=== PATIENT | female | born 1940 | race African-American/Black ===

== ENCOUNTER 2018-01-19 02:47 | Observation (INO) | payer MEDICARE ==
[2018-01-19 03:20] LABS: %Neutrophils 91.7 % (42.0-75.0); Hemoglobin 11.6 g/dL (12.0-16.0); Mean Corpuscular Hemoglobin 30.3 pg (27.0-31.0); Mean Corpuscular Volume 86.8 fl (81.0-99.0); Mean Platelet Volume 7.6 fL (7.4-10.4); Platelet Count 197 thou/uL (130-400); RBC Distribution Width 13.5 % (11.5-14.5); Red Blood Cell (RBC) Count 3.81 mill/uL (4.20-5.40); White Blood Cell (WBC) Count 16.8 thou/uL (4.8-10.8)
[2018-01-19 03:21] LABS: #Monocytes 0.3 thou/uL (0.11-0.59); #Neutrophils 15.4 thou/uL (1.40-6.50); %Basophils 0.1 % (0.0-1.0); %Eosinophils 0.3 % (0.0-10.0); %Lymphocytes 6.1 % (21.0-51.0); %Monocytes 1.8 % (0.0-10.0)
[2018-01-19 03:24] LABS: Bilirubin Negative (Negative); Blood, Urine Trace (Negative); Clarity CLEAR (Clear); Glucose, Urine (Dipstick) Negative (Negative); Leukocyte Trace (Negative); Nitrite Negative (Negative); Protein, Urine (Dipstick) 100 mg/dL (Neg-Trace); Specific Gravity, Urine 1.012 (1.002-1.036); Urobilinogen 0.2 mg/dL (0.2-1.0); pH, Urine 5.5 (5.0-9.0)
[2018-01-19 03:26] LABS: Bacteria/HPF 4+ HPF (None Seen); Hyaline Casts/LPF 0-3 HYALINE CAST LPF (0-3 Hyaline); Squamous Epithelial 0-3 HPF (0-3); WBC/HPF 0-3 HPF (0-3)
[2018-01-19 03:30] LABS: Prothrombin Time 13.3 SEC (12.0-14.7)
[2018-01-19 03:43] LABS: ALT (SGPT) 16 U/L (8-55); AST (SGOT) 18 U/L (5-34); Albumin 4.3 g/dL (3.4-4.8); Alkaline Phosphatase 129 U/L (40-150); Anion Gap 13 mmol/L (10-20); BUN (Urea Nitrogen) 35 mg/dL (9.8-20.1); Bilirubin, Total 0.5 mg/dL (0.2-1.2); CK (CPK) 69 U/L (29-168); Calc. Creatinine Clearance 0 mL/min (70-130); Carbon Dioxide 27 mmol/L (23-31); Chloride 91 mmol/L (98-107); Estimated GFR-MDRD 33; Globulin 4.2 g/dL (2.4-3.5); Glucose 189 mg/dL (83-110); Lipase 14 U/L (8-78); Potassium 4.3 mmol/L (3.5-5.1); Protein, Total 8.5 g/dL (6.0-8.3); Sodium 127 mmol/L (136-145)
[2018-01-19 03:46] LABS: CKMB 1.7 ng/mL (0-6.6); Troponin I Less than 0.010 ng/mL (< 0.028)
[2018-01-19] MEDS ORDERED: Nitroglycerin 0.4 MG TAB (25 Tab Bottle) ONE (03:54)
[2018-01-19 06:29] LABS: Troponin I 0.018 ng/mL (< 0.028)
[2018-01-19] MEDS ORDERED: Nitroglycerin 2% Ointment 1 INCH/1 GM Packet ONE (07:09)
--- NOTE | 2018-01-19 08:27 | RAD ---
PORTABLE UPRIGHT FRONTAL CHEST RADIOGRAPH: Date: 01-19-18 Comparison: 01-27-17 History: Chest pain. FINDINGS: There is stable prominence of the cardiac silhouette. There is pulmonary vascular congestion and midl ine sternotomy wires present. Post-surgical clips overlie the neck on the left. There is no pneumotho rax. There is mild hazy interstitial opacity in the perihilar regions in both lung bases. IMPRESSION: Mild interstitial prominence may signify mild interstitial edema in the proper clinical setting. No l obar consolidation or alveolar edema. POS: [facility]
[2018-01-19 09:48] LABS: Troponin I 0.019 ng/mL (< 0.028)
[2018-01-19 11:00] VITALS: BMI 32.3
[2018-01-19] MEDS ORDERED: Ondansetron HCl/PF 4 MG/2 ML Vial IVP PRN (11:05)
[2018-01-19] MEDS ORDERED: Ondansetron ODT 4 MG TAB PO PRN (11:05)
[2018-01-19] MEDS ORDERED: Acetaminophen 325 MG TAB PO PRN (11:05)
[2018-01-19] MEDS ORDERED: Furosemide 20 MG TAB PO SCH (12:30)
[2018-01-19] MEDS ORDERED: cloNIDine 0.2 MG TAB PO SCH (12:30)
[2018-01-19] MEDS ORDERED: Amlodipine 10 MG TAB PO SCH (12:30)
[2018-01-19] MEDS ORDERED: Carvedilol 25 MG TAB PO SCH (14:15)
[2018-01-19] MEDS: Carvedilol 25 MG TAB PO SCH (20:26)
[2018-01-19] MEDS: cloNIDine 0.2 MG TAB PO SCH (20:26)
[2018-01-20] MEDS: cloNIDine 0.2 MG TAB PO SCH (08:06)
--- NOTE | 2018-01-20 08:17 | HP ---
DATE OF ADMISSION: 01/19/2018 REASON FOR ADMISSION AND CHIEF COMPLAINT: Chest pain. HISTORY OF PRESENT ILLNESS: Ms. Gomez is a 77-year-old -[place] female with past medical hi story of coronary artery disease, status post CABG; came with chest pain that started last night. Th e pain in the retrosternal area, pressure-like, radiates to left shoulder and arm, also has been feel ing dizzy and weak since yesterday. The chest pain is associated with shortness of breath as well, b ut no nausea, vomiting, no diaphoresis. The pain lasted more than 30 minutes. The patient decided t o come to the hospital because of this chest pain. In the ER, the patient was evaluated, found to dolan ve normal cardiac enzymes and EKG. The patient received nitroglycerin in the ER sublingual x3. The patient is admitted to rule out myocardial infarction. Currently, the patient is chest pain free. PAST MEDICAL HISTORY: 1. Coronary artery disease, status post coronary artery bypass graft. 2. Hypertension. 3. Hypertensive heart disease. 4. History of fluid overload secondary to renal failure, chronic kidney disease, stage 4 5. Hyperlipidemia. 6. Degenerative joint disease. 7. History of hyponatremia. PAST SURGICAL HISTORY: 1. Status post CABG. 2. Status post cholecystectomy. 3. Status post hysterectomy. CURRENT MEDICATIONS: The patient is on Norvasc 10 mg daily, Coreg 25 b.i.d., clonidine 0.2 b.i.d., L asix 20 mg daily, Imdur 60 mg daily, Crestor 10 mg daily, aspirin 325 mg daily. It is not clear whet her she is still on Zoloft ALLERGIES: IBUPROFEN. FAMILY HISTORY: Positive for hypertension. SOCIAL HISTORY: The patient lives with her . No history of smoking, no history of alcohol in take. REVIEW OF SYSTEMS: Cardiovascular: Has chest pain and shortness of breath. Respiratory: No fever. Has cough, productive with whitish sputum. Gastrointestinal: No nausea or vomiting. Central nerv ous system: No headache. Feels dizzy. PHYSICAL EXAMINATION: VITAL SIGNS: Temperature 98, pulse 83, respirations 28, blood pressure 190/60. HEENT: Head is normocephalic and atraumatic. Pupils are equal and reactive to light. Nasopharynx i s pale and dry. Hard and soft palate, no lesions seen. SKIN: Skin turgor decreased. NECK: Supple. No JVD. LUNGS: Breath sounds diminished bilaterally. Percussion not dull bilaterally. No rales, no rhonchi . CARDIAC: S1, S2, regular. ABDOMEN: Soft, no distention. Normal bowel sounds present. RECTAL: Deferred. NEUROLOGIC: No focal deficits. LABORATORY DATA: CBC shows WBC 16.8, hemoglobin 11.6, hematocrit 33, platelets 197. Metabolic panel : Sodium 127, potassium 4.3, chloride 91, CO2 of 27, BUN is 35, creatinine 1.8, glucose 189. CK-MB 1.7, troponin I less than 0.010. Urinalysis negative. Prothrombin time 13, INR 1. Chest x-ray neg ative. EKG shows normal sinus rhythm, no acute ST-T wave changes seen. ASSESSMENT: 1. Chest pain, rule out myocardial infarction. 2. Coronary artery disease, status post coronary artery bypass graft. 3. Hypertension, uncontrolled. 4. Hyperlipidemia. 5. Degenerative joint disease. 6. Chronic kidney disease, stage 4. PLAN: 1. Vital signs q.4 hours. 2. Activity: As tolerated. 3. Allergies: IBUPROFEN. 4. Hep-Lock. 5. Cardiac diet. 6. Cardiac enzymes q.6 hours x2. 7. Stress test Cardiolite. 8. Continue her home medications. 9. We will add losartan for control of blood pressure.
[2018-01-20] MEDS ORDERED: Amlodipine 10 MG TAB PO SCH (09:00)
[2018-01-20] MEDS ORDERED: Furosemide 20 MG TAB PO SCH (09:00)
[2018-01-20] MEDS: Carvedilol 25 MG TAB PO SCH (12:30)
[2018-01-20] MEDS ORDERED: ADENOSINE 60 MG/20 ML VIAL ONE (13:29)
[2018-01-20] MEDS ORDERED: cloNIDine 0.2 MG TAB PO SCH ×2 (14:15→15:00)
--- NOTE | 2018-01-20 14:31 | NM ---
MYOCARDIAL PERFUSION EVALUATION: DATE: 01/19/18 INDICATION: Chest pain. RADIOPHARMACEUTICAL: 29.7 mCi technetium-99m sestamibi IV with stress and 30.5 mCi technetium-99m sestamibi IV with rest. FINDINGS: There is a mild size region of mild reduced activity involving the mid to apical lateral wall on both rest and stress images, likely related to overlying soft tissue artifact. No definite reversible myocardial perfusion defect is evident. Normal wall motion and thickening. Estimated LVEF is 55%. IMPRESSION: 1. Probably normal myocardial perfusion evaluation. 2. No definite scintigraphic evidence of reversible myocardial ischemia. 3. Predominantly fixed mild defect involving the lateral wall of the left ventricle on both the rest and stress images likely related to overlying soft tissue attenuation. POS: [facility]
[2018-01-20 14:59] LABS: #Eosinphils 0.1 thou/uL (0.0-0.7); #Lymphocytes 2.2 thou/uL (1.20-3.40); #Monocytes 0.9 thou/uL (0.11-0.59); #Neutrophils 5.3 thou/uL (1.40-6.50); %Basophils 0.2 % (0.0-1.0); %Eosinophils 1.2 % (0.0-10.0); %Lymphocytes 26.3 % (21.0-51.0); %Monocytes 10.4 % (0.0-10.0); Hemoglobin 11.8 g/dL (12.0-16.0); Mean Corpuscular HGB CONC 33.7 g/dL (32.0-36.0); Mean Corpuscular Hemoglobin 29.8 pg (27.0-31.0); Mean Corpuscular Volume 88.5 fl (81.0-99.0); Mean Platelet Volume 7.5 fL (7.4-10.4); Platelet Count 178 thou/uL (130-400); RBC Distribution Width 13.9 % (11.5-14.5); Red Blood Cell (RBC) Count 3.97 mill/uL (4.20-5.40); White Blood Cell (WBC) Count 8.5 thou/uL (4.8-10.8)
[2018-01-20 15:17] LABS: Anion Gap 12 mmol/L (10-20); BUN (Urea Nitrogen) 39 mg/dL (9.8-20.1); Calc. Creatinine Clearance 36 mL/min (70-130); Calcium 9.4 mg/dL (7.8-10.44); Carbon Dioxide 28 mmol/L (23-31); Chloride 98 mmol/L (98-107); Estimated GFR-MDRD 40; Glucose 135 mg/dL (83-110); Sodium 134 mmol/L (136-145)
[2018-01-20 15:43] VITALS: BP 132/61; TEMP 98.8
--- NOTE | 2018-01-21 12:49 | DIS ---
DATE OF ADMISSION: 01/19/2018 DATE OF DISCHARGE: 01/20/2018 ADMITTING DIAGNOSES: 1. Chest pain, rule out myocardial infarction. 2. Coronary artery disease, status post coronary artery bypass graft. 3. Hypertension, uncontrolled. 4. Hyperlipidemia. 5. Degenerative joint disease. 6. Chronic kidney disease, stage 4. FINAL DIAGNOSES: 1. Chest pain, no evidence of acute myocardial, negative Cardiolite stress test. 2. Hypertension, uncontrolled, improved. 3. Hyperlipidemia. 4. Degenerative joint disease. 5. Chronic kidney disease, stage 4. BRIEF SUMMARY OF HOSPITAL COURSE: Ms. Gomez is a 77-year-old female admitted with chest pain. In v iew of risk factors, the patient was admitted to rule out [place]. Serial cardiac enzymes were done and t hey were within normal limits. The patient underwent Cardiolite stress test and reported negative fo r ischemia. The patient did not have anymore chest pain, but her blood pressure was markedly elevate d. In view of that, her medication, clonidine, dose was increased to 3 times a day and losartan was added to her medication after which her blood pressure was better controlled. So, in view of improve ment, the patient was discharged. At the time of discharge, she was stable. Her vital signs stable. Lungs clear. Heart sounds regular. Her abdomen was soft and nontender. Bowel sounds present. DISCHARGE MEDICATIONS: Include Crestor 10 mg daily, amlodipine 10 mg daily, Zoloft 50 mg daily, sherin min D daily, Coreg 25 b.i.d., Xanax 0.25 once daily at night p.r.n., Imdur 60 mg daily, clonidine 0.2 t.i.d., Lasix 20 mg daily, losartan with hydrochlorothiazide 50/12.5 daily. FOLLOWUP: The patient will come for followup in 2 weeks.
--- NOTE | 2018-01-31 16:03 | EKG ---
Test Reason : Blood Pressure : / mmHG Vent. Rate : 094 BPM Atrial Rate : 094 BPM P-R Int : 156 ms QRS Dur : 080 ms QT Int : 350 ms P-R-T Axes : 069 -14 098 degrees QTc Int : 437 ms Normal sinus rhythm Possible Left atrial enlargement Left ventricular hypertrophy with repolarization abnormality No STEMI Abnormal ECG Confirmed by NICOLE Brock, AALIYAH ([id number]), society editor JEANNIE SINGH ([id number] on 01/31/2018 4:03:10 PM Referred By: Confirmed By:AALIYAH RIVERA M.D.
--- NOTE | 2018-02-01 13:36 | STRESS ---
Acquisition Time: 2018-01-20 10:21:44 Total Exercise Time: 00:04:00 Test Indications: CHEST PAIN Medications: Protocol: ADENOSINE Max HR: 083 BPM 57% of Pred: 144 BPM Max BP: 198/064 mmHG Max Work Load: 1.0 METS RESTING ECG: NORMAL SINUS RHYTHM AT 72 BPM WITH NON-SPECIFIC ST SEGMENT AND T-WAVE CHANGES; EARLY R-WAVE TRANSITION SYMPTOMS: SHORTNESS OF BREATH NORMAL BP RESPONSE ECTOPY: NONE ECG STRESS: NO SIGNIFICANT CHANGES INTERPRETATION: INDETERMINATE ECG/AWAIT NUCLEAR IMAGES FOR DEFINITIVE DIAGNOSIS Confirmed by FELIX ESTRADA ([id number]) on 02/01/2018 1:35:45 PM Referred By: MD Susan MENG Confirmed By:FELIX ESTRADA
== END 2018-01-20 17:11 | disposition home or self-care (01) ==
LOC: ERS 02:47 → ERHOLD 04:40 → 2SW 10:47
PROVIDERS: ADMIT Internal Medicine; ATTEND Internal Medicine
DX: R07.2 Precordial pain (principal); I25.10 Atherosclerotic heart disease of native coronary artery without angina pectoris; I12.9 Hypertensive chronic kidney disease with stage 1 through stage 4 chronic kidney disease, or unspecified chronic kidney disease; N18.4 Chronic kidney disease, stage 4 (severe); E78.5 Hyperlipidemia, unspecified; M19.90 Unspecified osteoarthritis, unspecified site; Z79.82 Long term (current) use of aspirin; Z79.899 Other long term (current) drug therapy; Z88.6 Allergy status to analgesic agent; Z95.1 Presence of aortocoronary bypass graft; Z90.49 Acquired absence of other specified parts of digestive tract; Z90.710 Acquired absence of both cervix and uterus
CPT/HCPCS: 71045; 78452; 80048; 80053; 82550; 82553; 83690; 83880; 84484 ×2; 85025 ×2; 85610; 93005; 93017; 96360; 99285; A9500; G0378; 36415; 81003; 81015; A4216; J0153

== ENCOUNTER 2018-08-31 10:24 | Outpatient (CLI) | payer MEDICARE ==
--- NOTE | 2018-08-31 12:43 | RAD ---
FOUR VIEWS CERVICAL SPINE SERIES: Indication: Fall with neck pain. Injury. FINDINGS: The odontoid process is intact. The lateral masses of C1 are appropriately aligned. There is moderate multilevel degenerative changes of the cervical spine. Cervical spine straightening may be degenerat citlaly in etiology. There is multilevel facet osteoarthrosis. Several metallic clips overlie the soft ti ssues of the neck bilaterally. IMPRESSION: Moderate degenerative change within the cervical spine without evidence of acute fracture. POS: [facility]
== END 2018-08-31 10:25 | disposition home or self-care (01) ==
LOC: RAD 10:24
PROVIDERS: ATTEND Internal Medicine
DX: M54.2 Cervicalgia (principal); M47.812 Spondylosis without myelopathy or radiculopathy, cervical region
CPT/HCPCS: 72040

== ENCOUNTER 2018-10-20 16:51 | Inpatient (IN) | payer MEDICARE ==
[2018-10-20 17:22] LABS: #Lymphocytes 0.8 thou/uL (1.20-3.40); #Monocytes 0.6 thou/uL (0.11-0.59); #Neutrophils 3.8 thou/uL (1.40-6.50); %Basophils 0.5 % (0.0-1.0); %Eosinophils 0.8 % (0.0-10.0); %Lymphocytes 15.6 % (21.0-51.0); %Monocytes 11.5 % (0.0-10.0); %Neutrophils 71.7 % (42.0-75.0); Mean Corpuscular HGB CONC 36.1 g/dL (32.0-36.0); Mean Corpuscular Hemoglobin 31.3 pg (27.0-31.0); Mean Corpuscular Volume 86.6 fL (78.0-98.0); Mean Platelet Volume 6.5 fL (7.4-10.4); Platelet Count 228 thou/uL (130-400); RBC Distribution Width 11.6 % (11.5-14.5); Red Blood Cell (RBC) Count 2.89 mill/uL (4.20-5.40); White Blood Cell (WBC) Count 5.3 thou/uL (4.8-10.8)
[2018-10-20 17:44] LABS: ALT (SGPT) 41 U/L (8-55); AST (SGOT) 37 U/L (5-34); Albumin 4.2 g/dL (3.4-4.8); Alkaline Phosphatase 98 U/L (40-150); Anion Gap 18 mmol/L (10-20); BUN (Urea Nitrogen) 61 mg/dL (9.8-20.1); Bilirubin, Total 1.2 mg/dL (0.2-1.2); Calc. Creatinine Clearance 0 mL/min (70-130); Calcium 10.1 mg/dL (7.8-10.44); Carbon Dioxide 28 mmol/L (23-31); Chloride 75 mmol/L (98-107); Estimated GFR-MDRD 19; Globulin 3.8 g/dL (2.4-3.5); Glucose 108 mg/dL (83-110); Potassium 4.1 mmol/L (3.5-5.1)
[2018-10-20 17:49] LABS: Sodium 117 mmol/L (136-145)
--- NOTE | 2018-10-20 19:33 | RAD ---
SINGLE VIEW OF THE CHEST: 10/20/18 COMPARISON: 01/19/18 HISTORY: Bilateral lower extremity weakness for one month. FINDINGS: Single view of the chest shows a normal sized cardiomediastinal silhouette with atherosclerotic calci fications in the aorta. The patient is status post sternotomy. There is no evidence of consolidation, mass, or pleural effusion. IMPRESSION: No evidence of acute cardiopulmonary disease. POS: [facility]
[2018-10-21 08:38] LABS: Bilirubin Negative (Negative); Blood, Urine Small (Negative); Clarity CLOUDY (Clear); Glucose, Urine (Dipstick) Negative (Negative); Leukocyte Moderate (Negative); Nitrite Negative (Negative); Protein, Urine (Dipstick) Trace mg/dL (Neg-Trace); Specific Gravity, Urine 1.008 (1.002-1.036); pH, Urine 6.5 (5.0-9.0)
[2018-10-21 08:44] LABS: Hyaline Casts/LPF 0-3 HYALINE CAST LPF (0-3 Hyaline); RBC/HPF 0-3 HPF (0-3)
[2018-10-21 09:03] LABS: Bacteria/HPF 4+ HPF (None Seen)
[2018-10-21] MEDS: Sodium Chloride 0.9% 1,000 ML IV SCH ×2 (10:04→19:37)
--- NOTE | 2018-10-21 10:15 | CON ---
DATE OF CONSULTATION: RENAL MEDICINE HISTORY OF PRESENT ILLNESS: Ms. Gomez is 78-year-old black female, was admitted initially for evaluation of a bilateral leg weakness-chronic in nature. She was found to be having hyponatremia and acute kidney injury on top of her chronic renal failure. We are now being consulted over for this problems-evaluation of the hyponatremia, acute kidney injury. REVIEW OF SYSTEMS: Decreased appetite, decreased energy level, decreased leg strength. No chest pain or shortness of breath. No fever or chills. No diarrhea. No hematochezia. No syncopal episode. No productive cough. No headache. No diplopia. No fever or chills. No abdominal pain. No dysuria. No urinary frequency. MEDICATIONS: Include the following; 1. Tramadol 50 mg p.o. b.i.d. 2. Clonidine 0.2 mg p.o. b.i.d. 3. Zoloft 50 mg daily. 4. Crestor 10 mg tablet at bedtime. 5. Protonix 40 mg tablet once a day. 6. Meclizine 25 mg b.i.d. p.r.n. 7. Losartan/hydrochlorothiazide 50/12.5 one tablet once a day. 8. Imdur ER 60 mg once a day. 9. Furosemide 20 mg daily. 10. Ferrous sulfate 325 mg daily. 11. Coreg 25 mg p.o. b.i.d. 12. Aspirin 81 mg daily. 13. Xanax 0.25 mg p.o. b.i.d. PAST MEDICAL HISTORY: Includes the following; 1. Chronic renal failure from presumed hypertensive nephropathy. 2. Longstanding hypertension. 3. History of intermittent hyponatremia. 4. Hyperlipidemia. 5. Coronary artery disease. 6. History of bladder prolapse. 7. Depression. 8. Chronic pain. 9. History of coronary artery disease. PAST SURGICAL HISTORY: Status post colonoscopy, status post open cholecystectomy, status post hysterectomy, status post cardiac cath, status post CABG. SOCIAL HISTORY: The patient lives in her home, , and lives with her . Retired cook. Education, high school. Three children. No history of smoking. No alcohol intake. Status post blood transfusion. No IV drug abuse. ALLERGIES: IBUPROFEN. TRAUMA: None. IMMUNIZATION: Up-to-date. HOSPITALIZATIONS: Please see past medical history. FAMILY HISTORY: No family history of ESRD. PHYSICAL EXAMINATION: VITAL SIGNS: Blood pressure is noted at 101/47, heart rate 65, respiratory rate 16, temperature 97.6, and pulse ox 96%. GENERAL: Noted to be awake, supine, comfortable, somewhat lethargic, not in distress. SKIN: Adequate turgor. HEENT: Slightly pale conjunctivae. Anicteric sclerae. No neck mass. No carotid bruits. No JVD. CHEST: No deformities. LUNGS: Clear breath sounds. No wheezing. No crackles. HEART: Normal sinus rhythm. No murmur. No gallops. No rubs. ABDOMEN: Globular, soft, and nontender. No masses. EXTREMITIES: No edema. No deformities. NEUROLOGIC: The patient is awake and oriented to 3 spheres. She is moving all extremities. No tremors. No asterixis. No ataxia. LABORATORY DATA: Laboratories of October 20, 2018; white count 5.3, hemoglobin 9. Sodium 117, potassium is 4.1, chloride 71, carbon dioxide 28, BUN 61, creatinine 2.86, glucose 108, calcium 10.1, AST 37, ALT 41, albumin is 4.2. Urinalysis is pending. Chest x-ray, no evidence of CHF or infiltrates. ASSESSMENT AND PLAN: 1. Hyponatremia-multifactorial etiology. This could be a combination of volume depletion as well from the intake of her hydrochlorothiazide. The plan is to place her on a free water restriction. We have also discontinued her losartan/hydrochlorothiazide. I have also started her on normal saline at 75 to 100 mL/hour since there may be a component of hypovolemic hyponatremia. Free water restriction of 1000 mL per day was placed. 2. Acute kidney injury on top of her chronic renal failure - superimposed prerenal azotemia. Start normal saline. Hold off losartan/hydrochlorothiazide. 3. Hypertension. Discontinue losartan. I have added nifedipine 30 mg XL tablet once a day. There is no indication for any emergent dialytic intervention or initiation of hypertonic saline. 4. Recheck basic metabolic profile tonight and in a.m. Job ID: [id number]
[2018-10-21 11:19] VITALS: BMI 25.9
[2018-10-21] MEDS: NIFEdipine XL 30 MG TAB PO SCH (11:28)
[2018-10-21] MEDS ORDERED: Meclizine HCl 25 MG TAB PO PRN (12:00)
[2018-10-21] MEDS: Carvedilol 25 MG TAB PO SCH (16:10)
[2018-10-21] MEDS: traMADol HCl 50 MG TAB PO SCH (19:41)
[2018-10-21] MEDS: Rosuvastatin 10 MG TAB PO SCH (19:41)
[2018-10-21] MEDS: cloNIDine 0.2 MG TAB PO SCH (19:41)
[2018-10-21] MEDS: ALPRAZolam 0.25 MG TAB PO SCH (20:56)
[2018-10-21 21:23] LABS: Anion Gap 16 mmol/L (10-20); BUN (Urea Nitrogen) 61 mg/dL (9.8-20.1); Calc. Creatinine Clearance 19 mL/min (70-130); Calcium 9.5 mg/dL (7.8-10.44); Carbon Dioxide 27 mmol/L (23-31); Chloride 83 mmol/L (98-107); Estimated GFR-MDRD 24; Glucose 108 mg/dL (83-110); Potassium 3.4 mmol/L (3.5-5.1); Sodium 123 mmol/L (136-145)
--- NOTE | 2018-10-21 21:34 | HP ---
CHIEF COMPLAINT: Weakness. HISTORY OF PRESENT ILLNESS: Ms. Gomez is a 78-year-old Afro-[place] Islander female with past medical history of hypertension, coronary artery disease, anxiety, depression, chronic pain, has been having weakness for the last few days, getting worse, unable to ambulate because of leg weakness. The patient is also not taking fluids well and not eating well for the last few days. No appetite. She was also dizzy sometimes. The patient stated the weakness started almost a month ago, got worse now in the last few days. She did not have any chest pain or shortness of breath. No nausea or vomiting. The patient did come to the hospital because of worsening weakness in the ER. The patient was evaluated, found to have severe hyponatremia with sodium of 117, blood pressure was markedly elevated also in the ER. The patient was started on IV fluids with normal saline, and admitted for further evaluation and management. PAST MEDICAL HISTORY: 1. Hypertension. 2. Coronary artery disease. 3. Hyperlipidemia. 4. Anxiety. 5. Depression. 6. Chronic pain. 7. Chronic kidney disease stage 4. 8. History of hyponatremia. PAST SURGICAL HISTORY: 1. Status post cholecystectomy. 2. Status post hysterectomy. 3. Status post CABG. CURRENT MEDICATIONS: The patient is on; 1. Xanax 0.25 b.i.d. 2. Aspirin 81 mg daily. 3. Coreg 25 mg b.i.d. 4. Clonidine 0.2 b.i.d. 5. Ferrous sulfate 325 mg daily. 6. Lasix 20 mg daily. 7. Imdur 60 mg daily. 8. Losartan with hydrochlorothiazide 50/12.5 daily. 9. Meclizine 25 mg b.i.d. 10. Protonix 40 mg daily. 11. Crestor 10 mg daily. 12. Sertraline 50 mg daily. 13. Tramadol 50 b.i.d. ALLERGIES: IBUPROFEN. FAMILY HISTORY: Nothing contributory. SOCIAL HISTORY: The patient lives with family. No history of smoking. No history of alcohol. REVIEW OF SYSTEMS: CARDIOVASCULAR: No chest pain. No shortness of breath. RESPIRATORY: No fever or cough. GASTROINTESTINAL: No appetite, but no nausea or vomiting symptoms. CENTRAL NERVOUS SYSTEM: No headache. Feels dizzy. PHYSICAL EXAMINATION: GENERAL: The patient is alert, awake, and oriented x3. VITAL SIGNS: Temperature 98, pulse 60, respiratory rate 19, blood pressure 117/58. HEENT: Head is normocephalic, atraumatic. Pupils are equal and reactive. Nasopharynx is pale and dry. Hard and soft palate, no lesions. SKIN: Turgor decreased. NECK: Supple. No JVD. LUNGS: Bilateral air entry. No rales, no rhonchi. HEART: S1 and S2 regular. ABDOMEN: Soft. No distention. No tenderness. No organomegaly. Bowel sounds present. RECTAL: No symptoms. CENTRAL NERVOUS SYSTEM: The patient is alert, awake, and oriented x3. Motor system power 4/5 in all extremities. Deep tendon reflexes 2+ bilaterally. Plantars downgoing. Sensory intact. LABORATORY AND X-RAY FINDINGS: CBC shows WBC 5.3, hemoglobin 9, hematocrit 25, platelets 228. Metabolic panel; sodium 117, potassium 4, chloride 75, CO2 28, BUN 61, creatinine 2.86, glucose 108. Urinalysis showed bacteria 4+, wbc's 7 to 10, leukocyte esterase positive. Chest x-ray negative. EKG was not done. ASSESSMENT: 1. Severe hyponatremia, symptomatic. 2. Acute kidney injury. 3. Uncontrolled hypertension. 4. Urine tract infection. 5. Chronic kidney disease stage 4. 6. Degenerative joint disease, chronic pain. 7. History of coronary artery disease status post coronary artery bypass graft. 8. Anxiety and depression. PLAN: 1. Vital signs q.4 hours. 2. Activity: As tolerated. 3. Allergies: IBUPROFEN. 4. Diet: Regular cardiac. 5. IV fluids: Normal saline at 100 mL/h. 6. We will DC losartan with hydrochlorothiazide, continue home medications. 7. Nephrology consult. 8. BMP and CBC in the morning. Job ID: [id number]
[2018-10-22] MEDS: cefTRIAXone\\ROCEPHIN 2 GM in Sodium Chloride 0.9% 100 ML IVPB SCH (02:20)
[2018-10-22] MEDS: Sodium Chloride 0.9% 1,000 ML IV SCH ×2 (05:31→17:13)
[2018-10-22 05:52] LABS: #Eosinphils 0.1 thou/uL (0.0-0.7); #Monocytes 0.6 thou/uL (0.11-0.59); #Neutrophils 2.7 thou/uL (1.40-6.50); %Basophils 0.5 % (0.0-1.0); %Eosinophils 1.5 % (0.0-10.0); %Lymphocytes 22.4 % (21.0-51.0); %Neutrophils 61.7 % (42.0-75.0); Hemoglobin 8.4 g/dL (12.0-16.0); Mean Corpuscular HGB CONC 35.4 g/dL (32.0-36.0); Mean Corpuscular Hemoglobin 31.2 pg (27.0-31.0); Mean Platelet Volume 6.5 fL (7.4-10.4); Platelet Count 194 thou/uL (130-400); RBC Distribution Width 11.7 % (11.5-14.5); White Blood Cell (WBC) Count 4.4 thou/uL (4.8-10.8)
[2018-10-22 06:06] LABS: Anion Gap 16 mmol/L (10-20); BUN (Urea Nitrogen) 56 mg/dL (9.8-20.1); Calc. Creatinine Clearance 23 mL/min (70-130); Calcium 9.2 mg/dL (7.8-10.44); Carbon Dioxide 26 mmol/L (23-31); Chloride 89 mmol/L (98-107); Estimated GFR-MDRD 30; Glucose 91 mg/dL (83-110); Potassium 3.1 mmol/L (3.5-5.1); Sodium 128 mmol/L (136-145)
[2018-10-22] MEDS: traMADol HCl 50 MG TAB PO SCH ×2 (09:50→20:42)
[2018-10-22] MEDS: ALPRAZolam 0.25 MG TAB PO SCH ×2 (09:51→20:41)
[2018-10-22] MEDS: cloNIDine 0.2 MG TAB PO SCH ×2 (09:51→20:41)
[2018-10-22] MEDS: Carvedilol 25 MG TAB PO SCH ×3 (09:52→17:13)
[2018-10-22] MEDS: Ferrous Sulfate 325 MG TAB PO SCH (09:53)
[2018-10-22] MEDS: NIFEdipine XL 30 MG TAB PO SCH (09:53)
--- NOTE | 2018-10-22 10:03 | PRG ---
DATE OF SERVICE: 10/22/2018 RENAL MEDICINE. SUBJECTIVE: Ms. Gomez is a 78-year-old black female, admitted for acute kidney injury/hyponatremia. I felt that she had an acute kidney injury that was on top of her chronic renal failure - that was hemodynamically-mediated renal dysfunction. She was empirically given normal saline. In addition, her losartan/hydrochlorothiazide is currently placed on hold. Renal function has improved, and at the same time, hyponatremia is improved. No new complaints today. No chest pain or shortness of breath. No nausea. No vomiting. PHYSICAL EXAMINATION: VITAL SIGNS: Blood pressure 184/76, heart rate 56, respiratory rate 15, temperature 98.7, pulse ox 96%. GENERAL: Awake, alert, comfortable, not in distress. SKIN: Adequate turgor. HEENT: She has pinkish conjunctivae and anicteric sclerae. NECK: No neck mass. No carotid bruits. No JVD. CHEST: No deformities. LUNGS: Clear breath sounds. No wheezing. No crackles. HEART: Normal sinus rhythm. No murmur. No gallops. No rubs. ABDOMEN: Globular, soft, nontender. No masses. EXTREMITIES: No edema. No deformities. MEDICATIONS: Medications of October 22, 2018, were reviewed. LABORATORY DATA: Laboratories of October 22, 2018: White count 4.4, hemoglobin 8.4. Sodium 128, potassium 3.1, chloride 89, carbon dioxide 26, BUN 56, creatinine 1.96, GFR 30 mL/minute. ASSESSMENT AND PLAN: 1. Acute kidney injury - hemodynamically-mediated renal dysfunction, improved with volume repletion and discontinuation of losartan. 2. Hyponatremia - secondary to hypovolemic hyponatremia, improved with normal saline. Continue at the same time free water restriction. 3. Borderline anemia, on iron supplementation. Overall agree with current management. Continue to hold off losartan and hydrochlorothiazide. Recheck basic metabolics and CBC in a.m. Job ID: [id number]
[2018-10-22] MEDS: Potassium Chloride 20 MEQ TAB PO SCH ×2 (17:12→20:40)
[2018-10-22] MEDS: Rosuvastatin 10 MG TAB PO SCH (20:41)
[2018-10-23] MEDS: Sodium Chloride 0.9% 1,000 ML IV SCH ×3 (02:42→20:36)
[2018-10-23] MEDS: cefTRIAXone\\ROCEPHIN 2 GM in Sodium Chloride 0.9% 100 ML IVPB SCH (02:43)
[2018-10-23 05:59] LABS: #Eosinphils 0.2 thou/uL (0.0-0.7); #Lymphocytes 1.3 thou/uL (1.20-3.40); #Monocytes 0.7 thou/uL (0.11-0.59); #Neutrophils 3.2 thou/uL (1.40-6.50); %Basophils 0.3 % (0.0-1.0); %Eosinophils 4.4 % (0.0-10.0); %Lymphocytes 24.3 % (21.0-51.0); %Monocytes 12.4 % (0.0-10.0); %Neutrophils 58.6 % (42.0-75.0); Mean Corpuscular HGB CONC 34.4 g/dL (32.0-36.0); Mean Corpuscular Hemoglobin 30.7 pg (27.0-31.0); Mean Corpuscular Volume 89.1 fL (78.0-98.0); Mean Platelet Volume 6.7 fL (7.4-10.4); Platelet Count 212 thou/uL (130-400); RBC Distribution Width 11.9 % (11.5-14.5); White Blood Cell (WBC) Count 5.5 thou/uL (4.8-10.8)
[2018-10-23 06:13] LABS: Anion Gap 13 mmol/L (10-20); BUN (Urea Nitrogen) 41 mg/dL (9.8-20.1); Calc. Creatinine Clearance 31 mL/min (70-130); Calcium 9.2 mg/dL (7.8-10.44); Carbon Dioxide 26 mmol/L (23-31); Chloride 97 mmol/L (98-107); Estimated GFR-MDRD 41; Glucose 93 mg/dL (83-110); Potassium 3.8 mmol/L (3.5-5.1); Sodium 132 mmol/L (136-145)
[2018-10-23] MEDS ORDERED: hydrALAZINE 20 MG/ML VIAL SLOW IVP PRN (06:13)
[2018-10-23] MEDS ORDERED: hydrALAZINE 20 MG/ML VIAL SLOW IVP SCH (06:45)
[2018-10-23] MEDS: NIFEdipine XL 60 MG TAB PO SCH (08:36)
[2018-10-23] MEDS: ALPRAZolam 0.25 MG TAB PO SCH ×2 (08:37→20:36)
[2018-10-23] MEDS: Ferrous Sulfate 325 MG TAB PO SCH (08:37)
[2018-10-23] MEDS: cloNIDine 0.2 MG TAB PO SCH ×2 (08:37→20:39)
--- NOTE | 2018-10-23 09:23 | PRG ---
DATE OF SERVICE: 10/23/2018 RENAL MEDICINE. SUBJECTIVE: Ms. Gomez is a 78-year-old black female, who was seen for her hyponatremia and acute kidney injury on top of her chronic renal failure. Her medications - losartan/hydrochlorothiazide was discontinued. This improved her renal function as well as hyponatremia. She most likely has a superimposed prerenal azotemia as well as hypovolemic hyponatremia. Yesterday, she was noted to be bradycardic. For that reason, we placed the Coreg temporarily on hold. At the same time, I increase the nifedipine to 60 mg XL tablet once a day. No complaints today. No chest pain or shortness of breath. OBJECTIVE: VITAL SIGNS: Blood pressure is 184/78, heart rate 71, respiratory rate 15, temperature 98.2, and pulse ox 97%. GENERAL: Noted to be awake, alert, comfortable, not in distress. The patient is sitting. HEENT: Pinkish conjunctivae. Anicteric sclerae. NECK: No neck mass. No carotid bruits. No JVD. CHEST: No deformities. LUNGS: Clear breath sounds. No wheezing. No crackles. HEART: Normal sinus rhythm. No murmurs, gallops, or rubs. ABDOMEN: Globular, soft, nontender. No masses. EXTREMITIES: No edema. No deformities. MEDICATIONS: Medications of October 23, 2018, reviewed. LABORATORY DATA: Laboratories of October 23, 2018, white count 5.5, hemoglobin 8. Sodium 132, potassium 3.8, chloride 97, carbon dioxide 26, BUN 41, creatinine 1.49, glucose 93, calcium 9.2. ASSESSMENT AND PLAN: 1. Anemia. Check stool cards for occult blood. 2. Hypovolemic hyponatremia, much improved with volume repletion. Serum sodium now is 132. Continue to hold off any hydrochlorothiazide. 3. Acute kidney injury on top of her chronic renal failure, much improved. We discontinued her losartan. 4. Hypertension - continue nifedipine. Adjust as needed. 5. Bradycardia, much improved with discontinuation of the Coreg. 6. Recheck basic metabolic panel and CBC in the morning. Job ID: [id number]
[2018-10-23] MEDS: traMADol HCl 50 MG TAB PO SCH ×2 (12:29→20:39)
[2018-10-23] MEDS: Carvedilol 6.25 MG TAB PO SCH (20:36)
[2018-10-23] MEDS: Rosuvastatin 10 MG TAB PO SCH (20:36)
[2018-10-24] MEDS ORDERED: hydrALAZINE 20 MG/ML VIAL SLOW IVP SCH (03:30)
[2018-10-24] MEDS: cefTRIAXone\\ROCEPHIN 2 GM in Sodium Chloride 0.9% 100 ML IVPB SCH (04:03)
[2018-10-24] MEDS: Sodium Chloride 0.9% 1,000 ML IV SCH ×2 (04:03→18:13)
[2018-10-24 05:46] LABS: #Eosinphils 0.3 thou/uL (0.0-0.7); #Lymphocytes 1.4 thou/uL (1.20-3.40); #Monocytes 0.6 thou/uL (0.11-0.59); #Neutrophils 3.9 thou/uL (1.40-6.50); %Basophils 0.2 % (0.0-1.0); %Eosinophils 4.8 % (0.0-10.0); %Lymphocytes 22.3 % (21.0-51.0); %Monocytes 9.3 % (0.0-10.0); %Neutrophils 63.3 % (42.0-75.0); Hemoglobin 8.2 g/dL (12.0-16.0); Mean Corpuscular Hemoglobin 31.5 pg (27.0-31.0); Mean Platelet Volume 6.3 fL (7.4-10.4); Platelet Count 212 thou/uL (130-400); RBC Distribution Width 12.3 % (11.5-14.5); Red Blood Cell (RBC) Count 2.59 mill/uL (4.20-5.40); White Blood Cell (WBC) Count 6.1 thou/uL (4.8-10.8)
[2018-10-24 05:56] LABS: Anion Gap 13 mmol/L (10-20); BUN (Urea Nitrogen) 26 mg/dL (9.8-20.1); Calc. Creatinine Clearance 39 mL/min (70-130); Carbon Dioxide 23 mmol/L (23-31); Chloride 101 mmol/L (98-107); Estimated GFR-MDRD 52; Glucose 96 mg/dL (83-110); Potassium 3.4 mmol/L (3.5-5.1); Sodium 134 mmol/L (136-145)
[2018-10-24] MEDS: ALPRAZolam 0.25 MG TAB PO SCH ×2 (09:28→20:19)
[2018-10-24] MEDS: NIFEdipine XL 60 MG TAB PO SCH (09:28)
[2018-10-24] MEDS: Carvedilol 6.25 MG TAB PO SCH ×2 (09:30→20:20)
[2018-10-24] MEDS: traMADol HCl 50 MG TAB PO SCH ×2 (09:30→20:21)
[2018-10-24] MEDS: Ferrous Sulfate 325 MG TAB PO SCH (09:31)
[2018-10-24] MEDS: cloNIDine 0.2 MG TAB PO SCH ×2 (09:31→20:21)
--- NOTE | 2018-10-24 09:42 | PRG ---
DATE OF SERVICE: 10/24/2018 RENAL MEDICINE SUBJECTIVE: Ms. Gomez is a 78-year-old black female with chronic renal failure and was seen for her hyponatremia and acute kidney injury. We felt that this was secondary to hypovolemic hyponatremia. She was given normal saline. In addition, her losartan/hydrochlorothiazide has been discontinued. She was also noted to be bradycardic and Coreg was placed on hold. No other complaints today. No chest pain or shortness of breath. OBJECTIVE: VITAL SIGNS: Blood pressure is 154/67, heart rate 74, respiratory rate 20, pulse ox 96% on room air, temperature 98.5. GENERAL: Noted to be awake, alert, supine, and comfortable, not in distress. SKIN: Adequate turgor. HEENT: Slightly pale conjunctivae. Anicteric sclerae. NECK: No neck mass. No carotid bruits. No JVD. CHEST: No deformities. LUNGS: Clear breath sounds. No wheezing. No crackles. HEART: Normal sinus rhythm. No murmur. No gallops. No rubs. ABDOMEN: Globular, soft, nontender. No masses. EXTREMITIES: No edema. No deformities. MEDICATIONS: Medications of October 24, 2018 was reviewed. LABORATORY DATA: Laboratories of October 24, 2018, white count 6.1, hemoglobin 8.2. Sodium 134, potassium 3.4, chloride 101, carbon dioxide 23, BUN 26, creatinine 1.22, glucose 96, calcium 9.0. ASSESSMENT AND PLAN: 1. Acute kidney injury-superimposed hemodynamically-mediated dysfunction. Off losartan/hydrochlorothiazide. No indication for any dialytic intervention. She is nearing baseline renal function. 2. Hyponatremia-secondary to hypovolemic hyponatremia, much improved with normal saline. 3. Anemia, on ferrous sulfate. Stool cards have been given. Continue supportive care. Recheck basic metabolic panel and CBC in a.m. Job ID: [id number]
[2018-10-24] MEDS ORDERED: hydrALAZINE 20 MG/ML VIAL SLOW IVP PRN (18:06)
[2018-10-24] MEDS: Potassium Chloride 20 MEQ TAB PO SCH ×2 (18:11→21:51)
[2018-10-24] MEDS: Rosuvastatin 10 MG TAB PO SCH (20:20)
[2018-10-25] MEDS: cefTRIAXone\\ROCEPHIN 2 GM in Sodium Chloride 0.9% 100 ML IVPB SCH (02:01)
[2018-10-25 06:25] LABS: #Eosinphils 0.3 thou/uL (0.0-0.7); #Lymphocytes 1.4 thou/uL (1.20-3.40); #Monocytes 0.6 thou/uL (0.11-0.59); #Neutrophils 3.5 thou/uL (1.40-6.50); %Basophils 0.5 % (0.0-1.0); %Eosinophils 4.5 % (0.0-10.0); %Lymphocytes 24.8 % (21.0-51.0); %Monocytes 9.7 % (0.0-10.0); %Neutrophils 60.4 % (42.0-75.0); Hemoglobin 8.3 g/dL (12.0-16.0); Mean Corpuscular HGB CONC 34.6 g/dL (32.0-36.0); Mean Corpuscular Hemoglobin 31.2 pg (27.0-31.0); Mean Corpuscular Volume 90.3 fL (78.0-98.0); Platelet Count 196 thou/uL (130-400); RBC Distribution Width 12.5 % (11.5-14.5); Red Blood Cell (RBC) Count 2.67 mill/uL (4.20-5.40); White Blood Cell (WBC) Count 5.7 thou/uL (4.8-10.8)
[2018-10-25 06:47] LABS: Anion Gap 13 mmol/L (10-20); BUN (Urea Nitrogen) 18 mg/dL (9.8-20.1); Calc. Creatinine Clearance 36 mL/min (70-130); Calcium 9.3 mg/dL (7.8-10.44); Carbon Dioxide 22 mmol/L (23-31); Chloride 104 mmol/L (98-107); Estimated GFR-MDRD 48; Glucose 89 mg/dL (83-110); Sodium 135 mmol/L (136-145)
--- NOTE | 2018-10-25 09:30 | PRG ---
DATE OF SERVICE: 10/25/2018 SUBJECTIVE: Ms. Gomez is a 78-year-old black female with chronic renal failure and seen by the [facility] for the hyponatremia and acute kidney injury that was prerenal. She improved with volume repletion - with normal saline. At the same time, losartan/hydrochlorothiazide was discontinued. We have added nifedipine for her high blood pressure. This morning, she voices no new complaints. No chest pain or shortness of breath. OBJECTIVE: VITAL SIGNS: Blood pressure is 174/74, heart rate 75, respiratory rate 16, temperature 97.8, and pulse ox 97% - room air. GENERAL: Awake, alert, sitting comfortable, not in distress. SKIN: Adequate turgor. HEENT: Slightly pale conjunctivae. Anicteric sclerae. NECK: No neck mass. No carotid bruits. No JVD. CHEST: No deformities. LUNGS: Clear breath sounds. No wheezing. No crackles. HEART: Normal sinus rhythm. No murmur. No gallops. No rubs. ABDOMEN: Globular, soft, nontender. No masses. EXTREMITIES: No edema. No deformities. MEDICATIONS: Medications of October 25, 2018 were reviewed. LABORATORY DATA: Laboratories of October 25, 2018; white count 5.7, hemoglobin 8.3. Sodium 135, potassium 4, chloride 104, carbon dioxide 22, BUN 18, creatinine 1.3, glucose 89, calcium 9.3. ASSESSMENT AND PLAN: 1. Acute kidney injury - hemodynamically-mediated renal dysfunction. Renal function is near baseline. 2. Chronic renal failure - creatinine 1.3 is near baseline. Her GFR is 48 mL/minute. Continue supportive care. No indication for any dialytic intervention. 3. Hyponatremia, much improved with free water restriction and discontinuation of hydrochlorothiazide. 4. Hypertension. Continue current blood pressure medications. Adjust blood pressure medications as needed. 5. Due to much improved renal function, we will be signing off. We will follow this patient at the [facility]. Job ID: [id number]
[2018-10-25] MEDS: NIFEdipine XL 60 MG TAB PO SCH (10:27)
[2018-10-25] MEDS: traMADol HCl 50 MG TAB PO SCH ×2 (10:28→20:55)
[2018-10-25] MEDS: cloNIDine 0.2 MG TAB PO SCH ×2 (10:28→20:54)
[2018-10-25] MEDS: Ferrous Sulfate 325 MG TAB PO SCH (10:28)
[2018-10-25] MEDS: ALPRAZolam 0.25 MG TAB PO SCH ×2 (10:30→20:54)
[2018-10-25] MEDS: Carvedilol 6.25 MG TAB PO SCH (10:56)
[2018-10-25] MEDS: Sodium Chloride 0.9% 1,000 ML IV SCH (17:43)
[2018-10-25] MEDS: Carvedilol 25 MG TAB PO SCH (20:54)
[2018-10-25] MEDS: Rosuvastatin 10 MG TAB PO SCH (20:55)
[2018-10-26] MEDS: cefTRIAXone\\ROCEPHIN 2 GM in Sodium Chloride 0.9% 100 ML IVPB SCH (04:01)
[2018-10-26] MEDS: ALPRAZolam 0.25 MG TAB PO SCH ×2 (09:15→21:18)
[2018-10-26] MEDS: Ferrous Sulfate 325 MG TAB PO SCH (09:16)
[2018-10-26] MEDS: Carvedilol 25 MG TAB PO SCH ×2 (09:16→21:19)
[2018-10-26] MEDS: NIFEdipine XL 60 MG TAB PO SCH ×2 (09:16→21:16)
[2018-10-26] MEDS: cloNIDine 0.2 MG TAB PO SCH ×2 (09:16→21:17)
[2018-10-26] MEDS: traMADol HCl 50 MG TAB PO SCH ×2 (09:17→21:17)
[2018-10-26] MEDS: Sodium Chloride 0.9% 1,000 ML IV SCH (15:57)
[2018-10-26] MEDS: Rosuvastatin 10 MG TAB PO SCH (21:18)
[2018-10-27] MEDS: cefTRIAXone\\ROCEPHIN 2 GM in Sodium Chloride 0.9% 100 ML IVPB SCH (04:05)
[2018-10-27 06:11] LABS: #Eosinphils 0.3 thou/uL (0.0-0.7); #Lymphocytes 1.5 thou/uL (1.20-3.40); #Monocytes 0.3 thou/uL (0.11-0.59); %Basophils 0.4 % (0.0-1.0); %Eosinophils 4.7 % (0.0-10.0); %Lymphocytes 24.5 % (21.0-51.0); %Monocytes 4.6 % (0.0-10.0); %Neutrophils 65.7 % (42.0-75.0); Hemoglobin 8.3 g/dL (12.0-16.0); Mean Corpuscular HGB CONC 34.9 g/dL (32.0-36.0); Mean Corpuscular Hemoglobin 31.5 pg (27.0-31.0); Mean Corpuscular Volume 90.2 fL (78.0-98.0); Mean Platelet Volume 6.3 fL (7.4-10.4); Platelet Count 200 thou/uL (130-400); RBC Distribution Width 13.1 % (11.5-14.5); Red Blood Cell (RBC) Count 2.64 mill/uL (4.20-5.40)
[2018-10-27 06:25] LABS: Anion Gap 13 mmol/L (10-20); BUN (Urea Nitrogen) 16 mg/dL (9.8-20.1); Calc. Creatinine Clearance 39 mL/min (70-130); Calcium 9.2 mg/dL (7.8-10.44); Carbon Dioxide 22 mmol/L (23-31); Chloride 104 mmol/L (98-107); Estimated GFR-MDRD 54; Glucose 92 mg/dL (83-110); Potassium 3.6 mmol/L (3.5-5.1); Sodium 135 mmol/L (136-145)
[2018-10-27] MEDS: Ferrous Sulfate 325 MG TAB PO SCH (08:53)
[2018-10-27] MEDS: Carvedilol 25 MG TAB PO SCH (08:53)
[2018-10-27] MEDS: ALPRAZolam 0.25 MG TAB PO SCH (08:53)
[2018-10-27] MEDS: NIFEdipine XL 60 MG TAB PO SCH (08:53)
[2018-10-27] MEDS: cloNIDine 0.2 MG TAB PO SCH (08:53)
[2018-10-27] MEDS: traMADol HCl 50 MG TAB PO SCH (08:56)
[2018-10-27] MEDS ORDERED: cefTRIAXone\\ROCEPHIN 2 GM in Sodium Chloride 0.9% 100 ML IVPB SCH (09:45)
[2018-10-27] MEDS ORDERED: Ciprofloxacin 500 MG TAB PO SCH (10:15)
[2018-10-27 10:20] VITALS: BP 100/51; TEMP 98
== END 2018-10-27 10:33 | disposition home or self-care (01) | DRG 683 ==
LOC: ERS 16:51 → 2NO 18:57
PROVIDERS: ADMIT Internal Medicine; ATTEND Internal Medicine
DX: N17.9 Acute kidney failure, unspecified (principal); E87.1 Hypo-osmolality and hyponatremia; N39.0 Urinary tract infection, site not specified; I25.10 Atherosclerotic heart disease of native coronary artery without angina pectoris; F41.9 Anxiety disorder, unspecified; F32.9 Major depressive disorder, single episode, unspecified; G89.29 Other chronic pain; I12.9 Hypertensive chronic kidney disease with stage 1 through stage 4 chronic kidney disease, or unspecified chronic kidney disease; N18.4 Chronic kidney disease, stage 4 (severe); M19.90 Unspecified osteoarthritis, unspecified site; E78.5 Hyperlipidemia, unspecified; R00.1 Bradycardia, unspecified; D64.9 Anemia, unspecified; Z79.82 Long term (current) use of aspirin; Z90.49 Acquired absence of other specified parts of digestive tract; Z95.1 Presence of aortocoronary bypass graft
CPT/HCPCS: 36415; 71045; 80048; 80053; 81001; 81003; 85025; 87077; 87086; 87186; J0360; J0696; J7050

== ENCOUNTER 2019-01-28 04:24 | Emergency (ER) | payer MEDICARE ==
[2019-01-28 04:55] LABS: #Lymphocytes 1.1 thou/uL (1.20-3.40); #Monocytes 0.7 thou/uL (0.11-0.59); #Neutrophils 7.2 thou/uL (1.40-6.50); %Basophils 0.3 % (0.0-1.0); %Eosinophils 0.3 % (0.0-10.0); %Lymphocytes 11.7 % (21.0-51.0); %Monocytes 8.2 % (0.0-10.0); %Neutrophils 79.5 % (42.0-75.0); Hemoglobin 12.2 g/dL (12.0-16.0); Mean Corpuscular HGB CONC 33.2 g/dL (32.0-36.0); Mean Corpuscular Volume 90.2 fL (78.0-98.0); Mean Platelet Volume 7.7 fL (7.4-10.4); Platelet Count 232 thou/uL (130-400); RBC Distribution Width 13.6 % (11.5-14.5); Red Blood Cell (RBC) Count 4.06 mill/uL (4.20-5.40)
[2019-01-28 05:17] LABS: ALT (SGPT) 26 U/L (8-55); AST (SGOT) 28 U/L (5-34); Albumin 4.2 g/dL (3.4-4.8); Alkaline Phosphatase 89 U/L (40-150); Anion Gap 13 mmol/L (10-20); BUN (Urea Nitrogen) 27 mg/dL (9.8-20.1); Calc. Creatinine Clearance 0 mL/min (70-130); Calcium 10.4 mg/dL (7.8-10.44); Carbon Dioxide 32 mmol/L (23-31); Chloride 94 mmol/L (98-107); Estimated GFR-MDRD 36; Globulin 3.8 g/dL (2.4-3.5); Glucose 116 mg/dL (83-110); Potassium 3.1 mmol/L (3.5-5.1); Sodium 136 mmol/L (136-145)
[2019-01-28] MEDS ORDERED: Ondansetron ODT 8 MG TAB ONE (05:52)
[2019-01-28] MEDS ORDERED: Dicyclomine 20 MG TAB ONE (05:52)
== END 2019-01-28 07:23 | disposition home or self-care (01) ==
LOC: ERS 04:24
DX: A08.4 Viral intestinal infection, unspecified (principal); I25.10 Atherosclerotic heart disease of native coronary artery without angina pectoris; E78.5 Hyperlipidemia, unspecified; I11.0 Hypertensive heart disease with heart failure; I50.9 Heart failure, unspecified; F32.9 Major depressive disorder, single episode, unspecified; E11.9 Type 2 diabetes mellitus without complications; Z79.899 Other long term (current) drug therapy; Z79.891 Long term (current) use of opiate analgesic; Z79.82 Long term (current) use of aspirin
CPT/HCPCS: 36415; 80053; 85025

== ENCOUNTER 2019-01-29 08:01 | Inpatient (IN) | payer MEDICARE ==
[2019-01-29] MEDS ORDERED: Pantoprazole 40 MG VIAL ONE (08:17)
[2019-01-29] MEDS ORDERED: Morphine 4 MG/ML VIAL ONE (08:17)
[2019-01-29] MEDS ORDERED: Ondansetron PF 4 MG/2 ML Vial ONE (08:17)
[2019-01-29 08:53] LABS: #Lymphocytes 0.8 thou/uL (1.20-3.40); #Monocytes 1.2 thou/uL (0.11-0.59); %Basophils 0.1 % (0.0-1.0); %Eosinophils 0.2 % (0.0-10.0); %Monocytes 13.2 % (0.0-10.0); %Neutrophils 77.6 % (42.0-75.0); Hemoglobin 12.2 g/dL (12.0-16.0); Mean Corpuscular HGB CONC 33.5 g/dL (32.0-36.0); Mean Corpuscular Hemoglobin 30.3 pg (27.0-31.0); Mean Corpuscular Volume 90.3 fL (78.0-98.0); Platelet Count 227 thou/uL (130-400); RBC Distribution Width 13.4 % (11.5-14.5); Red Blood Cell (RBC) Count 4.03 mill/uL (4.20-5.40)
[2019-01-29 09:10] LABS: ALT (SGPT) 23 U/L (8-55); AST (SGOT) 24 U/L (5-34); Albumin 4.2 g/dL (3.4-4.8); Alkaline Phosphatase 81 U/L (40-150); Anion Gap 21 mmol/L (10-20); BUN (Urea Nitrogen) 34 mg/dL (9.8-20.1); Calc. Creatinine Clearance 0 mL/min (70-130); Calcium 10.1 mg/dL (7.8-10.44); Carbon Dioxide 30 mmol/L (23-31); Chloride 90 mmol/L (98-107); Estimated GFR-MDRD 34; Globulin 3.9 g/dL (2.4-3.5); Glucose 111 mg/dL (83-110); Lipase 8 U/L (8-78); Protein, Total 8.1 g/dL (6.0-8.3); Sodium 138 mmol/L (136-145)
[2019-01-29 09:31] LABS: CKMB 1.4 ng/mL (0-6.6)
--- NOTE | 2019-01-29 09:53 | CT ---
FCT abdomen with contrast CT pelvis with contrast: 01/29/2019 9:25 AM HISTORY: 78-year-old female with abdominal pain and vomiting. Fever. COMPARISON: None available TECHNIQUE: IV contrast: [id number]. FINDINGS: Stomach is severely distended with fluid and a small amount of gas. Fluid distention of the entire du odenum and multiple loops of jejunum. Abrupt change in caliber of small bowel at left lower quadrant at pelvic inlet, distal to which the ileal loops are collapsed. The colon is also decompressed. Large number of diverticula throughout the transverse, descending, and sigmoid colon. Retained high densit y enteric contrast material from hepatic flexure of colon to the junction between sigmoid and descend ing colon. No signs of acute diverticulitis. Through a 3.5 cm defect in the midline ventral abdominal wall musculature, there is herniation of intraperitoneal contents into the subcutaneous fat anterior ly. This hernia sac measures approximately 8.5 x 2.5 x 6 cm. Abutting its inferior aspect, there is a nother ventral hernia which may or may not be contiguous, consisting of a 4 cm wide defect in the yodit tral abdominal wall through which hernia sac measures 7.5 x 3.5 x 7 cm. This contains mostly intraper itoneal fat, probably omentum. There is fat stranding representing edema in both hernia sacs. At the junction between the 2 hernias, there is herniation of a 2 x 2 x 2 cm small segment of transverse col on. Along the left margin of the lower hernia, there is an array of sutures. Heavy atherosclerotic calcification of the abdominal aorta causing multifocal moderate stenosis of th e aorta at level of renal arteries and more distally. Heavy atherosclerotic calcification of origin o f celiac artery and throughout much of the proximal superior mesenteric artery. Possible severe steno sis of superior mesenteric artery. Tiny left pleural effusion. No hydronephrosis. 1.2 cm heterogeneously low-attenuation lesion at anter ior parenchyma of right renal midpole, and a similar one at right renal lower pole cortex, too small to definitively characterize, but probably cysts. No splenomegaly. No mass or pancreatitis involving pancreas. Liver and adrenals are normal except for biliary tree dilation due to cholecystectomy. Refl ux of fluid from stomach into esophagus. Uterus is surgically absent. There is herniation of a large portion of the urinary bladder that extends a craniocaudal distance caudal to the level of the initia l tuberosities by a distance of 6.5 cm. This cystocele component of the urinary bladder measures 6.5 x 7.5 x 4.5 cm. There is diffuse mural thickening of the urinary bladder. No ascites or pneumoperiton eum. IMPRESSION: 1.) Small bowel obstruction. Transition zone at left lower quadrant of abdomen. 2.) 2 ventral hernias adjacent to each other. The more superior one contains fat and only a small div erticulum component of transverse colon. The lower one contains a short segment of transverse colon. Both have fat stranding. Fat stranding within a hernia sac can be seen with strangulation, but in thi s case could be due to other reasons. Clinical correlation recommended. 3) severe atherosclerotic disease of abdominal aorta and its branches. 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 4) large cystocele 5.) status post cholecystectomy.
[2019-01-29] MEDS ORDERED: Benzocaine 20% Spray 60 ML CAN ONE (10:23)
[2019-01-29] MEDS ORDERED: Oxymetazoline HCl 0.05% ( 15 ML ) ONE (10:24)
[2019-01-29 12:19] LABS: Troponin I 0.043 ng/mL (< 0.028)
[2019-01-29 15:03] LABS: Troponin I 0.028 ng/mL (< 0.028)
[2019-01-29] MEDS ORDERED: Iopamidol 370 76% 100 ML VIAL ONE (15:20)
[2019-01-29] MEDS ORDERED: D5 1/2 NS w/20 mEq KCL 0 ML ONE ×2 (16:29→17:20)
[2019-01-29] MEDS ORDERED: Potassium Chloride 20 MEQ in Premix Bag 1 BAG IVPB SCH (16:30)
[2019-01-29] MEDS ORDERED: hydrALAZINE 20 MG/ML VIAL ONE (17:18)
[2019-01-29] MEDS: hydrALAZINE 20 MG/ML VIAL SLOW IVP PRN (17:29)
--- NOTE | 2019-01-29 17:29 | CON ---
DATE OF CONSULTATION: 01/29/2019 REASON FOR CONSULTATION: Abnormal EKG and elevated troponin. PRIMARY CARE PHYSICIAN: Edna Kern MD is the primary provider. HISTORY OF PRESENT ILLNESS: Ms. Gomez is a pleasant 78-year-old woman, who is a patient of Dr. Noble Kern. She has a previous history of underlying coronary artery disease in addition to bypass surgery. She recently presented with abdominal pain. She was found have a small bowel obstruction. She was found to have EKG changes, which were felt to be new, noted in the lateral and anteroseptal region. Her troponin was negative. She denies chest pain, pressure, or associated symptoms. Her only complaint is continued abdominal discomfort. She has an NG tube in place with suction. PAST MEDICAL HISTORY: Diabetes mellitus, CAD, hyperlipidemia, hypertension, CHF, CABG x4, cholecystectomy, hysterectomy, oophorectomy, and depression. SOCIAL HISTORY: No tobacco or alcohol use. HOME MEDICATIONS: Include; 1. Sertraline. 2. Isosorbide. 3. Carvedilol. 4. Lasix. 5. Meclizine. 6. Pantoprazole. 7. Tramadol. 8. Losartan/hydrochlorothiazide. 9. Alprazolam. 10. Aspirin. 11. Crestor. 12. Amlodipine. 13. Clonidine. 14. Bentyl. 15. Zofran. REVIEW OF SYSTEMS: A 10-point review of systems is reviewed as above, otherwise negative. PHYSICAL EXAMINATION: VITAL SIGNS: Blood pressure 140/70, pulse 80, and respirations 20. GENERAL: Patient is a pleasant female, who is in no acute distress. The patient appears their stated age. NEUROLOGIC: The patient is alert and oriented x3 with no focal neurologic deficits. HEENT: Sclerae without icterus. Mouth has moist mucous membranes with normal pallor. NECK: No JVD. Carotid upstroke brisk. No bruits bilaterally. LUNGS: Clear to auscultation with unlabored respirations. BACK: No scoliosis or kyphosis. CARDIAC: Regular rate and rhythm with normal S1 and S2. No S3 or S4 noted. No significant rubs, murmurs, thrills, or gallops noted throughout the precordium. PMI is not displaced. There is no parasternal heave. ABDOMEN: Decreased bowel sounds. Soft, nontender, nondistended. No peritoneal signs present. No hepatosplenomegaly. No abnormal striae. EXTREMITIES: 2+ femoral and 2+ dorsalis pedis pulses. No cyanosis, clubbing, or edema. SKIN: No gross abnormalities. PERTINENT LABORATORY DATA: Hemoglobin 12.2 and white blood cell count 9.0. Creatinine 1.76 and potassium 3.0. Peak troponin 0.05. IMPRESSION: 1. Small bowel obstruction. 2. Coronary artery disease. 3. Status post bypass surgery. 4. Indeterminate troponin. RECOMMENDATION: Troponin felt to be a type 2 ME and likely due to underlying condition. Her EKG does look different versus 2018. Her changes noted laterally appeared to be suggestive of LVH. At this point, she has no current symptoms and we will continue with conservative therapy. Her CK-MB and troponin are negative. I am not able to place her on outpatient medications. Continue to monitor symptomatically. Further recommendation per Dr. Noble Kern in a.m. Job ID: [id number]
[2019-01-29] MEDS ORDERED: Ondansetron ODT 4 MG TAB SL PRN (18:54)
[2019-01-29] MEDS ORDERED: Ondansetron PF 4 MG/2 ML Vial IVP PRN (18:54)
[2019-01-29] MEDS: NS 0.9% w/ 20 MEQ KCL 1,000 ML IV SCH (20:37)
--- NOTE | 2019-01-29 22:27 | CON ---
DATE OF CONSULTATION: HISTORY OF PRESENT ILLNESS: Ms. Gomez is a 78-year-old woman, who presented to the emergency room with abdominal pain, nausea, and vomiting since . She states that she came into the emergency room on Wednesday, but started to feel better after treatment there, so went back home, but her symptoms recurred and were getting worse. So, she came back to the hospital today. She has not had any fevers or chills. She states that she had several liquid bowel movements on Wednesday. She has just been throwing up bile and has not been able to eat since the onset of her symptoms. She does report occasional discomfort after eating and has lost about 10 pounds over the past couple months. PAST MEDICAL HISTORY: Coronary artery disease, hyperlipidemia, hypertension, and CHF. PAST SURGICAL HISTORY: Coronary artery bypass, cholecystectomy, hysterectomy, and oophorectomy. FAMILY HISTORY: Noncontributory. SOCIAL HISTORY: The patient does not smoke or use illicit drugs. Her family is present with her in the emergency room. ALLERGIES: SHE REPORTS THAT IBUPROFEN GIVES HER CHEST PAIN, BUT DOES NOT HAVE ANY OTHER KNOWN ALLERGIES. OUTPATIENT MEDICATIONS: Include, 1. Sertraline. 2. Isosorbide mononitrate. 3. Carvedilol. 4. Furosemide. 5. Meclizine. 6. Pantoprazole. 7. Tramadol. 8. Losartan/hydrochlorothiazide. 9. Alprazolam. 10. Aspirin. 11. Crestor. 12. Amlodipine. 13. Clonidine. 14. Bentyl. 15. Zofran. 16. Dicyclomine. REVIEW OF SYSTEMS: 10-system review of systems is negative except per HPI. The patient has not had any chest pain or shortness of breath. PHYSICAL EXAMINATION: VITAL SIGNS: The patient has been afebrile in the emergency room. Heart rate 80, blood pressure 171/79, respirations 24, and 95% saturated on room air. GENERAL: Reveals an elderly woman, in no acute distress. She is not flushed or toxic in appearance. She is not jaundiced or icteric. An NG tube is in place with thick green bile in the tubing and canister. According to the ER nurse, she has already filled 1 L canister, and there is about 500 mL in the current canister. HEENT: Unremarkable. NECK: Supple without lymphadenopathy or thyroid nodules. HEART: Regular in its rate and rhythm. I do not appreciate any murmurs, rubs, or gallops. LUNGS: Clear to auscultation bilaterally. ABDOMEN: Soft and nondistended. Bowel sounds are diminished. She has palpable lower midline hernias, which are nontender to palpation but not reducible. She has mild epigastric tenderness, which she states is much improved from her arrival in the ER. EXTREMITIES: Warm and well perfused without edema. She has pedal pulses. NEURO: No focal deficits. PSYCHIATRIC: Alert, oriented, and appropriate. LABORATORY DATA: Reviewed. White count is normal, hematocrit 36, and platelets 277. Potassium is slightly low at 3. BUN and creatinine are mildly elevated at 34 and 1.76. LFTs are unremarkable. Troponins are in the indeterminate range at 0.05 and 0.043. DIAGNOSTIC DATA: CT images are reviewed, and I agree with the written report. The stomach is very distended, and the proximal small bowel is also impressively distended. Transition point appears to be in the left lower quadrant, and the distal small bowel and colon are decompressed. She has extensive calcification of the aorta and mesenteric vessels, especially the SMA, but also the origin of the celiac. The KRUPA looks relatively spared. ASSESSMENT: Small-bowel obstruction with symptomatic improvement after NG decompression. I recommend a course of conservative management with bowel rest and NG decompression. The patient is at increased risk for surgery given her other medical issues and is currently undergoing evaluation for her mildly elevated troponins. She was also felt to have some EKG changes by her ER doctor, although I cannot locate the 12-lead. Currently, she is not complaining of any abdominal pain or nausea. We will likely give her 24 to 48 hours of bowel rest before obtaining a small-bowel follow-through. She does have incarcerated hernias, and there is a diverticulum of the transverse colon in one of these hernias. However, the hernias are nontender and asymptomatic. The patient was unaware of their presence, and this was also not an urgent problem. I am somewhat concerned of the patient's heavily calcified and likely stenotic celiac and SMA vessels and had discussed these findings with Dr. Martines of Vascular Surgery. She has renal insufficiency with a GFR of 34%, so her options may be limited. She does have some vague abdominal complaints and recent weight loss, but it is unclear whether this is due to mesenteric stenosis or onset of her bowel obstruction. Job ID: [id number]
--- NOTE | 2019-01-29 23:33 | CON ---
DATE OF CONSULTATION: HISTORY OF PRESENT ILLNESS: This is a 78-year-old lady, known to me from previous coronary bypass grafting and bilateral carotid endarterectomies. Last , she began vomiting and having abdominal discomfort and had a bowel movement the following day and has had no further output from her intestines. She has continued to be nauseated with abdominal pain. Seen in the ER today where she was found to have a CT scan suggestive of small-bowel obstruction. She was also noted to have heavily calcified abdominal aorto-iliac segments, and based on my review, probable occlusion or subtotal occlusion of the superior mesenteric artery with calcifications extending for several centimeters up that vessel. The celiac artery had calcified orifice, but appeared to be patent, and the inferior mesenteric artery also appeared to be patent. PAST MEDICAL HISTORY: Includes hypertension and dyslipidemia. PAST SURGICAL HISTORY: In[place] [address] Thurston as well as a hysterectomy. She is not aware of any other abdominal surgeries. She has had the prior bilateral carotid endarterectomies and prior coronary bypass grafting. SOCIAL HISTORY: She has never been a smoker. She lives in [place] with her . REVIEW OF SYSTEMS: The patient has some dyspnea on exertion and does have some symptoms of urinary incontinence. ALLERGIES: SHE HAS ALLERGIES TO IBUPROFEN. MEDICATIONS: At home include, 1. Xanax. 2. Aspirin. 3. Coreg. 4. Bentyl. 5. Tramadol. 6. Clonidine. 7. Sertraline. 8. Crestor. 9. Pantoprazole. 10. Procardia. 11. Isosorbide. 12. Furosemide. Her workup here includes a normal white count, creatinine of 1.76, troponin abnormal at 0.5. PHYSICAL EXAMINATION: GENERAL: She is alert, cooperative lady, and in no distress. NECK: Bilateral carotid bruits. LUNGS: Clear to auscultation. CARDIAC: Soft systolic murmur. Regular rate and rhythm. ABDOMEN: She has a long healed midline incision as well as a Alejandra incision in the right upper quadrant and an incision near the umbilicus extending inferiorly. She has palpable femoral and popliteal pulses, and I do not appreciate good pedal pulses at this time. She has no peripheral edema. Her abdomen otherwise is soft with positive bowel sounds and only mildly tender to palpation. REVIEW OF SYSTEMS: The patient denies any GI problems until last week, specifically denying abdominal pain after eating or significant weight loss. At this time, I would think that she probably has a small bowel obstruction from adhesions. If it turns out that she has some ischemic bowel, then more aggressive treatment can be given to her mesenteric vessels, but with appearing to have 2/3 patent vessels we think that it is unlikely she has mesenteric ischemia. Job ID: [id number]
[2019-01-30 05:01] LABS: #Lymphocytes 0.6 thou/uL (1.20-3.40); #Monocytes 1.3 thou/uL (0.11-0.59); #Neutrophils 7.5 thou/uL (1.40-6.50); %Basophils 0.1 % (0.0-1.0); %Lymphocytes 6.7 % (21.0-51.0); %Monocytes 13.9 % (0.0-10.0); %Neutrophils 79.4 % (42.0-75.0); Hemoglobin 12.1 g/dL (12.0-16.0); Mean Corpuscular HGB CONC 33.9 g/dL (32.0-36.0); Mean Corpuscular Hemoglobin 30.4 pg (27.0-31.0); Mean Corpuscular Volume 89.5 fL (78.0-98.0); Mean Platelet Volume 7.7 fL (7.4-10.4); Platelet Count 188 thou/uL (130-400); RBC Distribution Width 13.5 % (11.5-14.5); Red Blood Cell (RBC) Count 3.98 mill/uL (4.20-5.40); White Blood Cell (WBC) Count 9.4 thou/uL (4.8-10.8)
[2019-01-30 05:21] LABS: Anion Gap 18 mmol/L (10-20); BUN (Urea Nitrogen) 41 mg/dL (9.8-20.1); Calc. Creatinine Clearance 27 mL/min (70-130); Calcium 9.2 mg/dL (7.8-10.44); Carbon Dioxide 25 mmol/L (23-31); Chloride 98 mmol/L (98-107); Estimated GFR-MDRD 41; Glucose 94 mg/dL (83-110); Potassium 3.2 mmol/L (3.5-5.1); Sodium 138 mmol/L (136-145)
--- NOTE | 2019-01-30 08:04 | HP ---
CHIEF COMPLAINT: Abdominal pain, nausea, and vomiting. HISTORY OF PRESENT ILLNESS: Ms. Gomez is a 78-year-old female with past medical history of hypertension, coronary artery disease status post CABG, came in because of nausea, vomiting, abdominal pain started exactly 4 days ago and the patient was seen in the ER on Wednesday and evaluated and treated for nausea and vomiting and released. The patient came back with persistent nausea, vomiting, as well as abdominal pain and constipation problems onset now. The pain is more of a dull ache pain. No headache. No dizziness. She also claims she had fever as well. The patient came back today and was evaluated and found to have possible small bowel obstruction. The patient was given IV fluids, Protonix, and Zofran. The patient was also found to have elevated troponin I as well as an abnormal EKG. She is being admitted to telemetry to rule out myocardial infarction. The patient did not have any chest pain. PAST MEDICAL HISTORY: 1. Hypertension. 2. Hyperlipidemia. 3. Coronary artery disease, status post CABG. 4. Chronic back pain. 5. Anxiety disorder. 6. Depression. 7. Chronic kidney disease stage 3. 8. History of hyponatremia. PAST SURGICAL HISTORY: Cholecystectomy, status post hysterectomy, status post CABG. CURRENT MEDICATIONS: The patient is on: 1. Xanax 0.25 b.i.d. 2. Aspirin 81 mg daily. 3. Coreg 25 b.i.d. 4. Clonidine 0.2 b.i.d. 5. Ferrous sulfate 325 mg daily. 6. Lasix 20 mg daily. 7. Imdur 60 mg. 8. Losartan hydrochlorothiazide 50/12.5 daily. 9. Protonix 40 mg daily. 10. Crestor 10 mg daily. 11. Sertraline 50 mg daily. ALLERGIES: IBUPROFEN. FAMILY HISTORY: Nothing contributory. SOCIAL HISTORY: The patient lives with family. No history of smoking, alcohol , or drugs. REVIEW OF SYSTEMS: CARDIOVASCULAR: No chest pain or shortness of breath. RESPIRATORY: Has fever. No cough. GASTROINTESTINAL: Has abdominal pain, distention, nausea, vomiting, and constipation. CENTRAL NERVOUS SYSTEM: No headache. No dizziness. PHYSICAL EXAMINATION: GENERAL: The patient is alert, awake, and oriented x3. VITAL SIGNS: Temperature 98, pulse 80, respirations 24, blood pressure __. HEENT: Head is normocephalic, atraumatic. Pupils are equal and reactive. Nasopharynx is pale and dry. Hard and soft palate, no lesions. SKIN: Turgor decreased. NECK: Supple. No JVD. LUNGS: Bilateral air entry. No rales, no rhonchi. HEART: S1 and S2 regular. ABDOMEN: Soft. Tender diffusely. No guarding. Bowel sounds present but sluggish. CENTRAL NERVOUS SYSTEM: No focal deficits. EXTREMITIES: No edema. LABORATORY DATA: CBC showing WBC 9, hemoglobin 12, hematocrit 36, platelets 227,000. Metabolic panel; sodium 138, potassium 3, chloride 90, CO2 13, BUN 34, creatinine 0.7, glucose 111. Troponin I 0.043. EKG shows normal sinus rhythm. There is T-wave inversion seen in lead I and aVL, and also V1, V2. CT of the abdomen showed small bowel obstruction, transition zone at left lower quadrant. ASSESSMENT: 1. Small bowel obstruction. 2. Elevated troponin and abnormal EKG, rule out myocardial infarction. 3. Coronary artery disease, status post CABG. 4. Hypertension. 5. Hyperlipidemia. 6. History of hyponatremia. 7. Hypokalemia. 8. Anxiety disorder. PLAN: 1. Vital signs q.4. 2. Activity as tolerated. 3. Allergies, NKDA. 4. IV fluids with normal saline at 70 mL/h. 5. KCl replacement. 6. Hydralazine p.r.n. 7. General Surgery consult. 8. Cardiology consult. Job ID: [id number] [facility]
[2019-01-30] MEDS: NS 0.9% w/ 20 MEQ KCL 1,000 ML IV SCH ×3 (08:39→13:28)
[2019-01-30] MEDS ORDERED: Meclizine HCl 25 MG TAB PO PRN (16:59)
[2019-01-30] MEDS ORDERED: cloNIDine 0.2 MG TAB PO SCH (17:00)
[2019-01-30] MEDS ORDERED: NIFEdipine XL 60 MG TAB PO SCH (17:00)
--- NOTE | 2019-01-30 17:30 | PDOC.CTH ---
Cardiology Progress Note - Subjective The pt seen and examined. No overnight events. No cardiac complaints. She cont. having intermittent ABD pain. - Objective Vital Signs Temp Pulse Resp BP Pulse Ox 01/30/19 11:32 98.3 F 85 20 150/67 H 95 01/30/19 08:34 98.6 F 89 20 152/68 H 96 Admit Weight 94 lb 12.8 oz Weight 120 lb 8 oz - Physical Examination General/Neuro: alert & oriented x3 Neck: no JVD present Lungs: CTA (diminished at bases) Heart: RRR Abdomen: soft Extremities: other: (No edema) - Telemetry Telemetry Rhythm: SR - Labs Result Diagrams: 01/30/19 04:47 01/31/19 05:23 Troponin/CKMB CK-MB (CK-2) 1.4 ng/mL (0-6.6) 01/29/19 08:20 Troponin I 0.028 ng/mL (< 0.028) 01/29/19 14:26 - Assessment/Plan 1. Elevated trop 2/2 demand ischemia - Cont. to monitor on tele 2. SBO - NPO 3. CAD with Hx of CABG x4 in 2005 - stable with BBlocker, ASA, statin 4. HTN - Clonidin 0.2mg BID from this PM 5. DM type 2 - 6. Hyperlipidemia - 7. CKD - 8. Hypokalemia - 40 mEq IV x now; MAR reviewed Pt. seen and eval. by me. I agree with the A/P by the CORN HUSK BALER. Chest clear. RRR. Cardiac status is stable. Review of Systems - Review of Systems Constitutional: reports: no symptoms reported EENTM: reports: no symptoms reported Respiratory: reports: no symptoms reported Cardiac (ROS): reports: no symptoms reported ABD/GI: reports: see HPI
[2019-01-30] MEDS: Carvedilol 6.25 MG TAB PO SCH (17:48)
[2019-01-30] MEDS ORDERED: Potassium Chloride 20 MEQ in Premix Bag 1 BAG IVPB SCH (18:00)
--- NOTE | 2019-01-30 18:16 | PDOC.GSPN ---
Surgery Progress Note: Subj - Subjective Narrative: Patient states that she feels pretty good. She is not having any pain. A little nausea. She doesn't think she has passed any gas. Abdomen is soft nontender nondistended. Bowel sounds are diminished. NG output is still fairly dark and bilious. There are a few 100 mL's in the canister and it is sumping well. Assessment/plan: Small bowel obstruction, persistent but minimally symptomatic. I will allow her have some ice chips only while NG tube is connected to intermittent low wall suction. She was encouraged to get up and walk in the halls. We will get a small bowel follow through tomorrow. Surgery Progress Note: Obj - Vital signs Vital signs: Vital Signs - Most Recent Temp Pulse Resp BP Pulse Ox 98.3 F 85 20 150/67 H 95 01/30/19 11:32 01/30/19 17:48 01/30/19 11:32 01/30/19 11:32 01/30/19 11:32 Surgery Progress Note: Results - Labs Result Diagrams: 01/30/19 04:47 01/30/19 04:47 Lab results: Laboratory Results - last 24 hr 01/30/19 01/30/19 10:50 16:38 POC Glucose 98 81
[2019-01-30] MEDS: Potassium Chloride 20 MEQ TAB PO SCH ×2 (18:36→20:53)
[2019-01-30] MEDS: Rosuvastatin 10 MG TAB PO SCH (20:53)
[2019-01-30] MEDS: ALPRAZolam 0.25 MG TAB PO SCH (20:53)
[2019-01-31] MEDS: Potassium Chloride 20 MEQ TAB PO SCH (02:33)
[2019-01-31] MEDS: NS 0.9% w/ 20 MEQ KCL 1,000 ML IV SCH ×2 (03:02→18:03)
[2019-01-31 06:03] LABS: Anion Gap 20 mmol/L (10-20); BUN (Urea Nitrogen) 53 mg/dL (9.8-20.1); Calc. Creatinine Clearance 26 mL/min (70-130); Calcium 9.2 mg/dL (7.8-10.44); Carbon Dioxide 21 mmol/L (23-31); Chloride 105 mmol/L (98-107); Estimated GFR-MDRD 39; Glucose 85 mg/dL (83-110); Potassium 3.9 mmol/L (3.5-5.1); Sodium 142 mmol/L (136-145)
[2019-01-31] MEDS: Carvedilol 6.25 MG TAB PO SCH ×2 (08:59→17:30)
[2019-01-31] MEDS: cloNIDine 0.2 MG TAB PO SCH ×3 (09:00→22:01)
[2019-01-31] MEDS: ALPRAZolam 0.25 MG TAB PO SCH ×3 (09:00→22:01)
[2019-01-31] MEDS: Aspirin Chewable 81 MG TAB PO SCH (09:00)
[2019-01-31] MEDS ORDERED: Furosemide 20 MG TAB PO SCH (09:00)
[2019-01-31] MEDS: Ferrous Sulfate 325 MG TAB PO SCH (09:01)
[2019-01-31] MEDS: NIFEdipine XL 60 MG TAB PO SCH ×3 (09:02→22:01)
--- NOTE | 2019-01-31 13:51 | PDOC.CTH ---
Cardiology Progress Note - Subjective The pt seen and examined. No overnight events. No cardiac complaints. - Objective Vital Signs Temp Pulse Resp BP BP Pulse Ox 01/31/19 12:18 97.4 F L 88 24 H 143/66 H 97 01/31/19 09:02 92 01/31/19 09:00 175/74 H 01/31/19 08:59 175/74 H 01/31/19 07:40 97.6 F 92 24 H 175/74 H 97 01/31/19 04:00 98.6 F 85 20 140/63 91 L Admit Weight 94 lb 12.8 oz Weight 120 lb 01/30/19 01/31/19 02/01/19 06:59 06:59 06:59 Intake Total 240 Output Total 500 Balance -260 - Physical Examination General/Neuro: alert & oriented x3 Neck: no JVD present Lungs: other: (diminished at bases) Heart: RRR Abdomen: soft Extremities: other: (No edema) - Labs Result Diagrams: 01/30/19 04:47 01/31/19 05:23 Troponin/CKMB CK-MB (CK-2) 1.4 ng/mL (0-6.6) 01/29/19 08:20 Troponin I 0.028 ng/mL (< 0.028) 01/29/19 14:26 - Assessment/Plan 1. Elevated trop 2/2 demand ischemia - Cont. to monitor on tele 2. SBO - NPO except ice chip 3. CAD with Hx of CABG x4 in 2005 - stable with BBlocker, ASA, statin 4. HTN - Increase Coreg from 6.25mg to 12.5mg BID from today; Clonidin 0.2mg BID from this PM 5. DM type 2 - 6. Hyperlipidemia - 7. CKD - 8. Hypokalemia - improved MAR reviewed Pt. seen and eval. by me. I agree with the A/P by the DOLL SURGEON No complaints. Chest clear. RRR. Overall cardiac status is stable. Review of Systems - Review of Systems Constitutional: reports: no symptoms reported EENTM: reports: no symptoms reported Respiratory: reports: no symptoms reported Cardiac (ROS): reports: no symptoms reported ABD/GI: reports: abdominal pain : reports: no symptoms reported Musculoskeletal: reports: no symptoms reported
[2019-01-31] MEDS ORDERED: MD-Gastroview 120 ML BOT ONE (16:59)
--- NOTE | 2019-01-31 17:10 | PDOC.GSPN ---
Surgery Progress Note: Subj - Subjective Narrative: Patient states that she is feeling all right. She denies pain or nausea. No flatus. Vital signs are okay. Small bowel follow-through has not shown passage of contrast beyond the dilated proximal small bowel loops at 3 hours 15 minutes. Abdomen is soft slightly distended but nontender. Assessment/plan: Persistent small bowel obstruction without evidence of passage of contrast through the intestine at 3 hours 15 minutes. She will likely require surgery tomorrow. Clinically she is stable. Discussed the diagnosis and recommended treatment. The patient has 2 incarcerated lower abdominal wall ventral hernias, we'll plan to make an incision at that location and reduce the hernias. If we are able to perform the surgery with a hand port and laparoscopy , we will proceed that way, otherwise she will require open lysis of adhesions and possible bowel resection. Inherent risks including bleeding, infection, risks anesthesia, damage to nearby structures including intestine, blood vessels , and bladder were discussed. The patient and her family understand and accept these risks and wished to proceed. She has been made nothing by mouth after midnight. I have asked the nurse to call me after the small bowel follow- through final images are obtained. Surgery Progress Note: Obj - Vital signs Vital signs: Vital Signs - Most Recent Temp Pulse Resp BP Pulse Ox 97.8 F 89 22 H 151/70 H 96 01/31/19 16:13 01/31/19 16:13 01/31/19 16:13 01/31/19 16:13 01/31/19 16:13 Surgery Progress Note: Results - Labs Result Diagrams: 01/30/19 04:47 01/31/19 05:23 Lab results: Laboratory Results - last 24 hr 01/31/19 01/31/19 01/31/19 05:23 05:29 11:02 Sodium 142 Potassium 3.9 Chloride 105 Carbon Dioxide 21 L Anion Gap 20 BUN 53 H Creatinine 1.55 H Estimated GFR (MDRD) 39 Glucose 85 POC Glucose 86 89 Calcium 9.2
--- NOTE | 2019-01-31 20:51 | RAD ---
SMALL BOWEL SERIES: 01/31/19 HISTORY: Abdominal pain, vomiting. FINDINGS: Small bowel series is performed with serial imaging following the administration of intraluminal cont rast. The small bowel loops are dilated. Contrast reaches the loops of mid small bowel at 6 hours, 15 minutes. No contrast is seen in the distal small bowel or colon. There is contrast in the urinary bladder. IMPRESSION: High grade small bowel obstruction. POS: CADY
[2019-01-31] MEDS: Rosuvastatin 10 MG TAB PO SCH ×2 (21:49→22:02)
[2019-02-01 06:35] LABS: Anion Gap 23 mmol/L (10-20); BUN (Urea Nitrogen) 72 mg/dL (9.8-20.1); Calc. Creatinine Clearance 15 mL/min (70-130); Calcium 9.9 mg/dL (7.8-10.44); Carbon Dioxide 20 mmol/L (23-31); Chloride 113 mmol/L (98-107); Estimated GFR-MDRD 21; Glucose 99 mg/dL (83-110); Potassium 3.7 mmol/L (3.5-5.1); Sodium 152 mmol/L (136-145)
[2019-02-01 06:52] LABS: Hemoglobin 12.1 g/dL (12.0-16.0); Lymphocytes 6 % (21-51); MDiff Complete? YES; Mean Corpuscular HGB CONC 32.5 g/dL (32.0-36.0); Mean Corpuscular Hemoglobin 29.6 pg (27.0-31.0); Mean Corpuscular Volume 90.9 fL (78.0-98.0); Mean Platelet Volume 8.2 fL (7.4-10.4); Monocytes 8 % (0-10); Neutrophil 86 % (42-75); Platelet Count 253 thou/uL (130-400); Platelet Morphology Comment Appears Adequate; RBC Distribution Width 14.1 % (11.5-14.5); RBC Morphology Normal; Red Blood Cell (RBC) Count 4.11 mill/uL (4.20-5.40); White Blood Cell (WBC) Count 7.7 thou/uL (4.8-10.8)
[2019-02-01] MEDS ORDERED: Sodium Chloride 0.9% 500 ML IV SCH (07:00)
[2019-02-01 07:35] LABS: Troponin I 0.031 ng/mL (< 0.028)
[2019-02-01] MEDS: Carvedilol 6.25 MG TAB PO SCH ×2 (08:05→17:29)
[2019-02-01] MEDS: cloNIDine 0.2 MG TAB PO SCH ×2 (10:52→22:32)
[2019-02-01] MEDS: ALPRAZolam 0.25 MG TAB PO SCH ×2 (10:52→22:32)
[2019-02-01] MEDS: NIFEdipine XL 60 MG TAB PO SCH ×2 (10:53→22:32)
--- NOTE | 2019-02-01 12:55 | PDOC.CTH ---
Cardiology Progress Note - Subjective The pt seen and examined. No overnight events. No cardiac complaints. - Objective Vital Signs Temp Pulse Resp BP BP Pulse Ox 02/01/19 10:53 87 02/01/19 10:52 140/63 02/01/19 08:10 97.6 F 87 24 H 140/63 92 L 02/01/19 08:05 140/63 02/01/19 04:48 94 L 02/01/19 04:40 97.8 F 82 16 154/67 H 90 L Admit Weight 94 lb 12.8 oz Weight 116 lb 6.4 oz 01/31/19 02/01/19 02/02/19 06:59 06:59 06:59 Intake Total 240 1784 Output Total 500 2887 650 Balance -725 -9526 -673 - Physical Examination General/Neuro: alert & oriented x3 Neck: no JVD present Lungs: CTA (diminished at bases) Heart: RRR Abdomen: soft Extremities: other: (No edema) - Telemetry Telemetry Rhythm: SR - Labs Result Diagrams: 02/01/19 05:49 02/01/19 05:49 Troponin/CKMB CK-MB (CK-2) 1.4 ng/mL (0-6.6) 01/29/19 08:20 Troponin I 0.031 ng/mL (< 0.028) H 02/01/19 05:49 - Assessment/Plan 1. Elevated trop 2/2 demand ischemia - Cont. to monitor on tele 2. SBO - plan for ex lap hernia repair or possible resection today 3. CAD with Hx of CABG x4 in 2006 - stable with BBlocker, ASA, statin 4. HTN - stable; 5. DM type 2 - 6. Hyperlipidemia - 7. CKD - NS bolus this AM. 8. Hypokalemia - improved 9. Hypernatremia MAR reviewed Review of Systems - Review of Systems Constitutional: reports: no symptoms reported EENTM: reports: no symptoms reported Respiratory: reports: no symptoms reported Cardiac (ROS): reports: no symptoms reported ABD/GI: reports: no symptoms reported : reports: no symptoms reported Musculoskeletal: reports: no symptoms reported
[2019-02-01] MEDS: NS 0.9% w/ 20 MEQ KCL 1,000 ML IV SCH (13:39)
[2019-02-01] MEDS ORDERED: Rocuronium Bromide 10 MG/ML (10ML VIAL) ONE (14:46)
[2019-02-01] MEDS ORDERED: PROPOFOL 200 MG/20 ML VIAL ONE (14:46)
[2019-02-01] MEDS ORDERED: Glycopyrrolate 0.2 MG/ML 5 ML SYRINGE ONE (14:46)
[2019-02-01] MEDS ORDERED: Ondansetron PF 4 MG/2 ML Vial ONE (14:46)
[2019-02-01] MEDS ORDERED: Lidocaine 1% PF 5 ML VIAL ONE (14:46)
[2019-02-01] MEDS ORDERED: Succinylcholine Chloride 20 MG/ML 10 ml SYRINGE FS ONE (14:46)
[2019-02-01] MEDS: Ferrous Sulfate 325 MG TAB PO SCH (14:54)
[2019-02-01] MEDS: Aspirin Chewable 81 MG TAB PO SCH (14:54)
[2019-02-01] MEDS ORDERED: Bupivacaine/Epinephrine 0.25% 30 ML VIAL ONE (14:54)
[2019-02-01] MEDS ORDERED: Famotidine/PF 20 mg/2ml Vial ONE (15:02)
[2019-02-01] MEDS ORDERED: Fentanyl 100 MCG/2 ML VIAL ONE ×4 (15:02→19:24)
[2019-02-01] MEDS ORDERED: Sodium Chloride 0.9% 100 ML ONE (15:33)
[2019-02-01] MEDS ORDERED: cefOXitin 2 GM VIAL ONE (15:33)
[2019-02-01] MEDS ORDERED: SUGAMMADEX SODIUM 200 MG/2 ML VIAL ONE (19:00)
[2019-02-01] MEDS ORDERED: Ondansetron HCl/PF 4 MG/2 ML Vial IVP PRN (19:30)
[2019-02-01] MEDS ORDERED: Promethazine HCl 25 MG/ML VIAL IM/IV PRN (19:30)
[2019-02-01] MEDS ORDERED: Non-Formulary Medication 1 EACH PO PRN (19:30)
[2019-02-01] MEDS: Dextrose 5 %-0.45 % NaCl 1,000 ML IV SCH (22:15)
[2019-02-01] MEDS: Rosuvastatin 10 MG TAB PO SCH (22:33)
[2019-02-01] MEDS ORDERED: Morphine 4 MG/ML VIAL SLOW IVP PRN ×2 (22:55→22:56)
[2019-02-02] MEDS: Acetaminophen 1,000 MG in Premix Bag 1 BAG IVPB SCH ×5 (00:13→22:43)
[2019-02-02] MEDS: Dextrose 5 %-0.45 % NaCl 1,000 ML IV SCH ×3 (05:40→20:18)
[2019-02-02] MEDS: ALPRAZolam 0.25 MG TAB PO SCH ×2 (09:12→20:14)
[2019-02-02] MEDS: Aspirin Chewable 81 MG TAB PO SCH (09:12)
[2019-02-02] MEDS: cloNIDine 0.2 MG TAB PO SCH ×2 (09:12→20:14)
[2019-02-02] MEDS: Carvedilol 6.25 MG TAB PO SCH ×2 (09:12→16:55)
[2019-02-02] MEDS: Ferrous Sulfate 325 MG TAB PO SCH (09:12)
[2019-02-02] MEDS: NIFEdipine XL 60 MG TAB PO SCH ×2 (09:13→20:15)
[2019-02-02 09:41] LABS: Hemoglobin 10.7 g/dL (12.0-16.0); Mean Corpuscular HGB CONC 31.6 g/dL (32.0-36.0); Mean Corpuscular Hemoglobin 28.9 pg (27.0-31.0); Mean Corpuscular Volume 91.6 fL (78.0-98.0); Mean Platelet Volume 7.5 fL (7.4-10.4); Platelet Count 209 thou/uL (130-400); RBC Distribution Width 13.8 % (11.5-14.5); Red Blood Cell (RBC) Count 3.71 mill/uL (4.20-5.40)
[2019-02-02 09:55] LABS: ALT (SGPT) 13 U/L (8-55); AST (SGOT) 15 U/L (5-34); Albumin 3.1 g/dL (3.4-4.8); Alkaline Phosphatase 60 U/L (40-150); Anion Gap 18 mmol/L (10-20); BUN (Urea Nitrogen) 57 mg/dL (9.8-20.1); Bilirubin, Total 0.4 mg/dL (0.2-1.2); Calc. Creatinine Clearance 18 mL/min (70-130); Calcium 8.8 mg/dL (7.8-10.44); Carbon Dioxide 22 mmol/L (23-31); Chloride 116 mmol/L (98-107); Estimated GFR-MDRD 26; Globulin 3.1 g/dL (2.4-3.5); Glucose 159 mg/dL (83-110); Potassium 3.6 mmol/L (3.5-5.1); Protein, Total 6.2 g/dL (6.0-8.3); Sodium 152 mmol/L (136-145)
[2019-02-02 10:03] LABS: Band 24 % (5-11); Lymphocytes 17 % (21-51); MDiff Complete? YES; Monocytes 4 % (0-10); Neutrophil 55 % (42-75); Nucleated RBC 1 % (0); Platelet Morphology Comment Appears Adequate; Polychromasia SLIGHT = 2-3 cells (100X) (0-2/hpf)
--- NOTE | 2019-02-02 17:25 | PDOC.CTH ---
Cardiology Progress Note - Subjective The pt seen and examined. No overnight events. The pt is very sleepy at this AM. - Objective Vital Signs Temp Pulse Resp BP Pulse Ox 02/02/19 16:51 98.8 F 96 16 168/77 H 93 L 02/02/19 11:57 98.6 F 97 22 H 167/72 H 92 L 02/02/19 08:13 93 L 02/02/19 07:34 98.5 F 88 24 H 150/66 H 93 L Admit Weight 94 lb 12.8 oz Weight 120 lb 02/01/19 02/02/19 02/03/19 06:59 06:59 06:59 Intake Total 1784 1960 Output Total 4950 1850 Balance -3166 110 - Physical Examination General/Neuro: other: (a&o to self and place) Lungs: other: (diminished at bases) Heart: RRR Abdomen: soft Extremities: other: (No edema) - Telemetry Telemetry Rhythm: SR - Labs Result Diagrams: 02/02/19 09:19 02/02/19 09:19 Troponin/CKMB CK-MB (CK-2) 1.4 ng/mL (0-6.6) 01/29/19 08:20 Troponin I 0.031 ng/mL (< 0.028) H 02/01/19 05:49 - Assessment/Plan 1. Elevated trop 2/2 demand ischemia - Cont. to monitor on tele 2. SBO - Ex lap hernia repair on 02/01/2019? 3. CAD with Hx of CABG x4 in 2006 - stable with BBlocker, ASA, statin 4. HTN - stable; 5. DM type 2 - 6. Hyperlipidemia - 7. CKD - NS bolus this AM. 8. Hypokalemia - improved 9. Hypernatremia MAR reviewed Pt. seen and eval. by me. I agree with the A/P by the [employer]IMAL [employer] AGENT SUPERVISOR No complaints. Chest clear. RRR. Overall cardiac status is stable. I will sign off. If any new cardiac issues please consult me again. Review of Systems - Review of Systems Constitutional: reports: see HPI
[2019-02-02] MEDS: Rosuvastatin 10 MG TAB PO SCH (20:15)
--- NOTE | 2019-02-02 20:34 | PDOC.GSPN ---
Surgery Progress Note: Subj - Subjective Narrative: Feels ok, denies n/v. Flatus x1 confirmed by . NG output low but bilious. Abd soft ND, appropriate TTP, incisions look good A/P) SBO s/p ROLDAN and ventral hernia repairs doing well. Clamp NG and dc if residual low. Ice chips, advance to clears if tolerates. Encouraged ambulation w binder when up. Surgery Progress Note: Obj - Vital signs Vital signs: Vital Signs - Most Recent Temp Pulse Resp BP Pulse Ox 98.8 F 96 16 168/77 H 93 L 02/02/19 16:51 02/02/19 16:51 02/02/19 16:51 02/02/19 16:51 02/02/19 16:51 Surgery Progress Note: Results - Labs Result Diagrams: 02/02/19 09:19 02/02/19 09:19 Lab results: Laboratory Results - last 24 hr 02/02/19 02/02/19 09:19 09:19 WBC 10.0 RBC 3.71 L Hgb 10.7 L Hct 34.0 L MCV 91.6 MCH 28.9 MCHC 31.6 L RDW 13.8 Plt Count 209 MPV 7.5 Neutrophils % (Manual) 55 Band Neuts % (Manual) 24 H Lymphocytes % (Manual) 17 L Monocytes % (Manual) 4 Neutrophils # Not Reportable Lymphocytes # Not Reportable Nucleated RBCs # (Man) 1 H Plt Morphology Comment Appears Adequate Polychromasia SLIGHT = 2-3 cells Sodium 152 H Potassium 3.6 Chloride 116 H Carbon Dioxide 22 L Anion Gap 18 BUN 57 H Creatinine 2.22 H Estimated GFR (MDRD) 26 Glucose 159 H Calcium 8.8 Total Bilirubin 0.4 AST 15 ALT 13 Alkaline Phosphatase 60 Serum Total Protein 6.2 Albumin 3.1 L Globulin 3.1 Albumin/Globulin Ratio 1.0 L
[2019-02-02] MEDS ORDERED: Ketorolac Tromethamine 30 MG/ML VIAL IVP PRN (21:37)
[2019-02-03 05:45] LABS: Anion Gap 12 mmol/L (10-20); BUN (Urea Nitrogen) 43 mg/dL (9.8-20.1); Calc. Creatinine Clearance 25 mL/min (70-130); Calcium 8.5 mg/dL (7.8-10.44); Carbon Dioxide 25 mmol/L (23-31); Chloride 116 mmol/L (98-107); Estimated GFR-MDRD 38; Glucose 107 mg/dL (83-110); Sodium 150 mmol/L (136-145)
[2019-02-03 06:14] LABS: Band 13 % (5-11); Eosinophils 2 % (0-10); Lymphocytes 11 % (21-51); MDiff Complete? YES; Mean Corpuscular HGB CONC 31.5 g/dL (32.0-36.0); Mean Corpuscular Hemoglobin 29.7 pg (27.0-31.0); Mean Corpuscular Volume 94.2 fL (78.0-98.0); Mean Platelet Volume 8.2 fL (7.4-10.4); Monocytes 7 % (0-10); Neutrophil 67 % (42-75); Platelet Count 204 thou/uL (130-400); Red Blood Cell (RBC) Count 3.36 mill/uL (4.20-5.40); White Blood Cell (WBC) Count 13.5 thou/uL (4.8-10.8)
[2019-02-03] MEDS: Dextrose 5 %-0.45 % NaCl 1,000 ML IV SCH ×2 (08:19→18:37)
[2019-02-03] MEDS: NIFEdipine XL 60 MG TAB PO SCH ×2 (08:20→21:42)
[2019-02-03] MEDS: Carvedilol 6.25 MG TAB PO SCH ×2 (08:20→16:13)
[2019-02-03] MEDS: Aspirin Chewable 81 MG TAB PO SCH (08:21)
[2019-02-03] MEDS: cloNIDine 0.2 MG TAB PO SCH ×2 (08:21→21:41)
[2019-02-03] MEDS: ALPRAZolam 0.25 MG TAB PO SCH ×2 (08:21→21:41)
[2019-02-03] MEDS: Ferrous Sulfate 325 MG TAB PO SCH (08:21)
[2019-02-03] MEDS ORDERED: Potassium Chloride 20 MEQ in Premix Bag 1 BAG IVPB SCH (10:30)
[2019-02-03 13:42] VITALS: BMI 26.2
--- NOTE | 2019-02-03 17:34 | PDOC.GSPN ---
Surgery Progress Note: Subj - Subjective Narrative: Patient has gotten agitated this afternoon and states that she wants to go home and is trying to get out of bed. Her family is at the bedside trying to calm her down but she remains fairly agitated and is more difficult to understand and usual. She cannot, she has had any flatus since yesterday nor can her family , but she has been asking for orange juice and has not had any nausea. She is not febrile. Her white count is slightly elevated but her bandemia has improved from yesterday. On creatinine has also improved and her urine output is good. Her incisions look good she is appropriately tender urban-incisionally and nondistended. Assessment and plan: Doing well from a surgical standpoint status post lysis of adhesions and repair of ventral hernias for small bowel obstruction, but more agitated and confused this afternoon. This is likely a sequela of her underlying dementia and her acute illness and hospitalization. Management is supportive. I'm going to leave her on a clear liquid diet until we have better confirmation of bowel function. Dr. Lin is covering this weekend. Surgery Progress Note: Obj - Vital signs Vital signs: Vital Signs - Most Recent Temp Pulse Resp BP Pulse Ox 98.6 F 80 18 134/63 94 L 02/03/19 16:00 02/03/19 16:00 02/03/19 16:00 02/03/19 16:00 02/03/19 16:00 Surgery Progress Note: Results - Labs Result Diagrams: 02/03/19 05:11 02/03/19 05:11 Lab results: Laboratory Results - last 24 hr 02/03/19 02/03/19 05:11 05:11 WBC 13.5 H RBC 3.36 L Hgb 10.0 L Hct 31.7 L MCV 94.2 MCH 29.7 MCHC 31.5 L RDW 14.0 Plt Count 204 MPV 8.2 Neutrophils % (Manual) 67 Band Neuts % (Manual) 13 H Lymphocytes % (Manual) 11 L Monocytes % (Manual) 7 Eosinophils % (Manual) 2 Sodium 150 H Potassium 3.0 L Chloride 116 H Carbon Dioxide 25 Anion Gap 12 BUN 43 H Creatinine 1.59 H Estimated GFR (MDRD) 38 Glucose 107 Calcium 8.5
[2019-02-03] MEDS ORDERED: Ziprasidone 20 MG VIAL IM SCH (17:45)
[2019-02-03] MEDS ORDERED: Sterile Water 10 ML VIAL FS SCH (17:45)
[2019-02-03] MEDS: hydrALAZINE 20 MG/ML VIAL SLOW IVP PRN (20:32)
[2019-02-03] MEDS: Rosuvastatin 10 MG TAB PO SCH (21:42)
[2019-02-03] MEDS ORDERED: Acetaminophen 650 MG Suppository PR PRN (22:02)
--- NOTE | 2019-02-04 01:35 | OP ---
DATE OF PROCEDURE: 02/01/2019 PROCEDURES PERFORMED: Repair of incarcerated ventral hernias and laparoscopic hand-assisted lysis of adhesions. PREOPERATIVE DIAGNOSES: Incarcerated ventral incisional hernias and small-bowel obstruction. POSTOPERATIVE DIAGNOSES: Incarcerated ventral incisional hernias and small-bowel obstruction. HISTORY: Ms. Gomez is a 78-year-old woman, who presented with bowel obstruction, which was not improving. She has multiple incarcerated ventral hernias, although the point of obstruction did not appear to be in these hernias. It was felt that repair of the hernias would be necessary to obtain access to the abdominal cavity for lysis of adhesions. She was consented for repair of incarcerated ventral hernias and lysis of adhesions. DESCRIPTION OF PROCEDURE: After informed consent was obtained and appropriate preoperative antibiotics were administered, the patient was taken to the operating room. She was placed in supine position and general endotracheal anesthesia was administered. She was prepped and draped in a standard sterile fashion and local anesthesia was infused to the skin and subcutaneous tissues in the lower midline overlying the ventral hernias. Dissection was carried down to the hernia. The largest hernia sac was dissected free circumferentially and the fascial defect cleared. An additional adjacent hernia was identified and a small fascial bridge between these 2 hernias was divided allowing both hernias to be reduced into the abdominal cavity. The adhesions covering the omentum within the hernia sac were divided and a free space identified laterally. Dissection was carried out superiorly and inferiorly and adhesions taken down as they were encountered. Additional small hernias were identified and incorporated into the midline fascial incision and all at least 6 hernias were connected in this manner, these were all containing omental fat, and in one case, a diverticulum of the transverse colon. However, there was no incarcerated bowel or small intestine encountered within the hernias themselves. As the omental adhesions were taken down lateral to the ventral hernia, there were some adhesions to the small intestine, which were divided as well. Once the omentum was completely mobilized and retracted superiorly, a GelPort was placed and the abdominal cavity examined laparoscopically. No additional significant adhesions to the anterior abdominal wall were seen. The dissecting trocars were placed laterally and the small bowel run from the ligament of Treitz to the terminal ileum. The transition point was visible and appeared to be at a location, where some omental adhesions to the small intestine had been taken down. The bowel was entirely viable, although there was some bruising in the wall. No bowel injuries were identified. The patient was noted to have hard stool and multiple diverticula throughout the entire colon. The stomach appeared grossly normal as did the first portion of the duodenum, but the patient was noted to have a white mass on the anterior portion of her liver just to the left of the falciform ligament. It was felt that this was most likely a calcified granuloma. A small biopsy was taken and hemostasis verified. No other significant abnormalities were noted. The small bowel was again run and returned to its normal anatomic position and the omentum drawn down over this. The operative site was irrigated and hemostasis verified and the fascia was closed with running PDS suture after separate from a site anterior to the omentum. The suspecting trocars were taken out under direct laparoscopic vision and hemostasis verified. The skin incisions were irrigated and the skin closed with running subcuticular Monocryl sutures. Dermabond dressings were placed. The patient was extubated and taken to Recovery in good condition. ESTIMATED BLOOD LOSS: Minimal. COMPLICATIONS: There were no complications. SPECIMEN: Liver biopsies. Job ID: [id number]
[2019-02-04 03:34] VITALS: TEMP 100
[2019-02-04] MEDS: Dextrose 5 %-0.45 % NaCl 1,000 ML IV SCH (04:08)
[2019-02-04] MEDS ORDERED: Ziprasidone 20 MG VIAL IM SCH (04:45)
[2019-02-04] MEDS ORDERED: Sodium Bicarb 50 MEQ/50 ML VIAL ONE (06:45)
[2019-02-04] MEDS ORDERED: Norepinephrine 8 MG/0.9% NS 250 ML ONE (06:56)
--- NOTE | 2019-02-04 07:23 | PDOC.EVN ---
Event Note - Event Note Event Note: Code yuliana called at 0613 due to patient becoming bradycardic and losing pulse. I responded while other resident team continued to code pt in 288. CPR was already in progress by nursing staff. See code records for detailed medication summary. First attempt was made to intubate pt but she was noted to vomit and aspirate large amount of vomitus. ER physician then arrived and ultimately successfully intubated with video. Pulse regained after round of epi. Pt was initially stabilized, however, became bradycardic while on transfer to the CCU. Epinephrine was given again en route. When pt reached her room, CPR resumed. Multiple rounds of epinephrine and bicarb were given. O2 sats continued to fall and ABG revealed pH 7.3 but paO2 29. Pt's pulse stabilized and code ended. Attending Dr. Ku present for 3 codes in CCU. Family along with primary and specialty teams notified.
[2019-02-04 07:30] LABS: Actual Bicarbonate (HCO3a) 20.6 mEq/L (22-28); CO2 Tension 40.2 mmHg (35.0-45.0); Calcium, Ionized 1.07 mmol/L (1.12-1.30); Carboxyhemoglobin (COHb) 1.4 gm% (0.0-3.0); Hemoglobin (Hb) 9.1 g/dL (12.0-16.0); Potassium - ABG Lab 3.72 mmol/L (3.70-5.30); pH, Arterial 7.33 (7.35-7.45)
[2019-02-04 07:32] LABS: Puncture Site LFA
[2019-02-04 07:40] VITALS: BP 81/52
--- NOTE | 2019-02-04 07:46 | RAD ---
EXAM: XR Chest 1 View Portable PROVIDED CLINICAL HISTORY: CODE BLUE COMPARISON: 10/20/2018 FINDINGS: Cardiac and mediastinal silhouette is not definitely changed in appearance. Median sternotomy changes and atherosclerosis redemonstrated. Overlying lead wires and defibrillator pad obscuring detail. Endotracheal tube is present, tip of which approximates the kayleen. Enteric catheter is noted tip of which is below the diaphragm. Bilateral perihilar airspace disease is suspected. The supine nature of the examination is not sensitive for detection of pleural fluid or pneumothorax, without gross haydee dence for such. IMPRESSION: 1. Bilateral perihilar airspace disease. This may reflect edema. 2. ET tube positioning as above.
[2019-02-04 07:57] LABS: Anion Gap 17 mmol/L (10-20); BUN (Urea Nitrogen) 39 mg/dL (9.8-20.1); Calc. Creatinine Clearance 33 mL/min (70-130); Calcium 7.4 mg/dL (7.8-10.44); Carbon Dioxide 20 mmol/L (23-31); Chloride 115 mmol/L (98-107); Estimated GFR-MDRD 42; Glucose 136 mg/dL (83-110); Potassium 3.1 mmol/L (3.5-5.1); Sodium 149 mmol/L (136-145)
[2019-02-04] MEDS ORDERED: Sodium Bicarb 50 MEQ/50 ML Abboject 8.4% SYRINGE ONE (08:00)
[2019-02-04] MEDS ORDERED: EPINEPHrine 1 MG/10 ML Abboject SYRINGE ONE (08:00)
[2019-02-04] MEDS ORDERED: Piperacillin/Tazobactam 3.375 GM in Sodium Chloride 0.9% 100 ML IVPB SCH (08:00)
[2019-02-04 08:03] LABS: Band 34 % (5-11); Eosinophils 1 % (0-10); Hemoglobin 8.4 g/dL (12.0-16.0); Lymphocytes 25 % (21-51); MDiff Complete? YES; Mean Corpuscular HGB CONC 33.1 g/dL (32.0-36.0); Mean Corpuscular Hemoglobin 30.6 pg (27.0-31.0); Mean Corpuscular Volume 92.3 fL (78.0-98.0); Mean Platelet Volume 8.9 fL (7.4-10.4); Metamyelocyte 9 % (0-0); Monocytes 2 % (0-10); Neutrophil 29 % (42-75); Nucleated RBC 1 % (0); Platelet Count 143 thou/uL (130-400); RBC Distribution Width 13.9 % (11.5-14.5); Red Blood Cell (RBC) Count 2.74 mill/uL (4.20-5.40); Toxic Granulation SLIGHT; White Blood Cell (WBC) Count 20.3 thou/uL (4.8-10.8)
[2019-02-04] MEDS ORDERED: fentaNYL Citrate/PF 2,000 MCG in Sodium Chloride 0.9% 60 ML IV SCH (08:05)
[2019-02-04] MEDS ORDERED: Albumin 5% 500 ML ONE (08:21)
[2019-02-04] MEDS ORDERED: Vasopressin 40 UNIT, Admixture Fee 1 EACH in Sodium Chloride 0.9% 100 ML IV SCH (08:30)
[2019-02-04] MEDS ORDERED: EPINEPHrine 1 MG, Admixture Fee 1 EACH in Dextrose 5% in Water 250 ML IVPB SCH (08:30)
[2019-02-04] MEDS ORDERED: Hydrocortisone Sod Succ/PF 100 mg/2 ml Vial IVP SCH (08:30)
--- NOTE | 2019-02-04 11:14 | CON ---
DATE OF CONSULTATION: HISTORY OF PRESENT ILLNESS: A 78-year-old female, who has been in the hospital since a week. Apparently, she underwent surgery yesterday for lysis of adhesions. This morning, she has had a prolonged CPR, stefanie bridges was called and at 6:30 in the morning, the patient became bradycardic, lost pulse. Code team arrived. Large amounts of medication were given. She apparently vomited vomitus. ER physician she was intubated. She was pulseless, given epinephrine multiple times. Blood gases obtained. Primary care physician now has arrived, Dr. Kwok is his name. He has talked with the family about ongoing issues. Reviewing her extensive medical history, which includes extensive multiple medical problems. PAST MEDICAL HISTORY: Most notably diagnosis, past medical history of congestive heart failure, hyponatremia, renal failure, hypertension, anxiety, and chronic renal failure. PAST SURGICAL HISTORY: Previous surgeries have included multiple in the past including bypass surgery, recent lap, cholecystectomy, and hysterectomy. MEDICATIONS: Medicines prior to admission included; 1. Catapres 0.2. 2. Zoloft 50. 3. Crestor 10. 4. Protonix 40. 5. Procardia XL 60. 6. Ismo 60. 7. Lasix 20. 8. Coreg 25. 9. Aspirin. 10. Xanax. PHYSICAL EXAMINATION: GENERAL: Pulse is 54, blood pressure is 60/80, respirations set at 20, and saturations are 100%. GENERAL: Unresponsive. CHEST: Extensive rhonchi and crackles. CARDIAC: Bradycardic. ABDOMEN: Distended and soft. EXTREMITIES: Trace edema. NEUROLOGIC: Unresponsive. LABORATORY DATA: White count 20,000, H and H 8 and 25, platelet count 43. A pO2 was only 41, pCO2 was 29, and pH was 7.3. BUN and creatinine 30 and 1.47. X-ray shows right infiltrate. IMPRESSION: 1. Status post prolonged cardiopulmonary resuscitation, probably cardiac ischemia. 2. Coronary artery disease. 3. Hypotension. 4. Aspiration pneumonia. 5. Recent lap. PLAN: Epinephrine and vasopressin. Levophed initiated. Hydrocortisone and IV fluids. Continue prolonged CPR until family decides no code. We will vent support. This is a 45-minute critical care time. Job ID: [id number]
[2019-02-04] MEDS ORDERED: Rocuronium Bromide 10 MG/ML (10ML VIAL) ONE (15:50)
--- NOTE | 2019-02-06 07:35 | DIS ---
DATE OF ADMISSION: 01/29/2019 DATE OF DISCHARGE: 02/04/2019 In spite of starting the patient on epinephrine drip vasopressor drip and Levophed, she once again proceeded to have a bradycardia and asystole. Prolonged CPR was re-started again. After 20 minutes, she received multiple amps of epinephrine, bicarb, D50. She was in a pulseless electrical rhythm manifestation. Finally, brought the and the daughter at the bedside to let them know her prognosis was grave. She has already had prolonged CPR earlier for an hour. Again for another 20 minutes chance of meaningful recovery was very small. At this stage, we decided that no further CPR was to be done. In spite of multiple pressors, she became bradycardic and once again proceeded to have asystole. Both the patient's and the daughter were at the bedside in the room. The patient's attending physician was at the bedside. The patient was pronounced at 8:42 in the morning. Body will released to the home. IMPRESSION: Multiorgan failure secondary to multiple medical problems, shock, status post laparotomy, coronary artery disease, respiratory failure, aspiration. Job ID: [id number]
--- NOTE | 2019-02-08 11:19 | PQF ---
GURVINDER CALVILLO ANUP G MD [id number] CLINICAL DOCUMENTATION CLARIFICATION FORM: POST DISCHARGE Please exercise your independent, professional judgment in responding to the clarification form. Clinical indicators are provided on the bottom of this form for your review Please check appropriate box(s): [ ] Hypovolemic Shock [ ] Cardiogenic Shock [ ] Septic Shock [ ] Hemorrhagic Shock due to surgery: [ ] Shock Unspecified [ ] Other diagnosis [ ] Unable to determine In addition, please specify: Present on Admission (POA): [ ] Yes [ ] No [ ] Unable to determine CLINICAL INDICATORS - SIGNS / SYMPTOMS / LABS 02/04 DS "Shock, status post laparotomy" 02/04 Consult Impression, probable cardiac ischemia 02/04 Consult Hypotension 60/80 RISK FACTORS 02/04 Code blue note Aspiration Cardiac Arrest Recent Surgery TREATMENTS: 02/04 MARS vasopressor infusion 02/04 Code blue CPR (This form is maintained as a part of the permanent medical record) 2014 [employer] All Rights Reserved Yanira [email or web address] [phone] [email or web address]
== END 2019-02-04 08:42 | disposition expired | DRG 335 ==
LOC: ERS 08:01 → ERHOLD 10:00 → 2NO 18:02 → CCU 02-04 06:41
PROVIDERS: ADMIT Internal Medicine; ATTEND Internal Medicine
PROC: 0DN80ZZ Release Small Intestine, Open Approach (ICD-10-PCS; principal; 2019-02-01)
PROC: 0WQF0ZZ Repair Abdominal Wall, Open Approach (ICD-10-PCS; 2019-02-01)
PROC: 0FB04ZX Excision of Liver, Percutaneous Endoscopic Approach, Diagnostic (ICD-10-PCS; 2019-02-01)
PROC: 5A12012 Performance of Cardiac Output, Single, Manual (ICD-10-PCS; 2019-02-04)
PROC: 5A1935Z Respiratory Ventilation, Less than 24 Consecutive Hours (ICD-10-PCS; 2019-02-04)
PROC: 0BH17EZ Insertion of Endotracheal Airway into Trachea, Via Natural or Artificial Opening (ICD-10-PCS; 2019-02-04)
PROC: 3E033XZ Introduction of Vasopressor into Peripheral Vein, Percutaneous Approach (ICD-10-PCS; 2019-02-04)
DX: K43.0 Incisional hernia with obstruction, without gangrene (principal); I21.A1 Myocardial infarction type 2; J69.0 Pneumonitis due to inhalation of food and vomit; J96.01 Acute respiratory failure with hypoxia; K55.1 Chronic vascular disorders of intestine; I13.0 Hypertensive heart and chronic kidney disease with heart failure and stage 1 through stage 4 chronic kidney disease, or unspecified chronic kidney disease; I24.9 Acute ischemic heart disease, unspecified; R57.9 Shock, unspecified; G93.40 Encephalopathy, unspecified; E87.0 Hyperosmolality and hypernatremia; K57.30 Diverticulosis of large intestine without perforation or abscess without bleeding; I46.9 Cardiac arrest, cause unspecified; K43.6 Other and unspecified ventral hernia with obstruction, without gangrene; N18.3 Chronic kidney disease, stage 3 (moderate); E87.6 Hypokalemia; I25.10 Atherosclerotic heart disease of native coronary artery without angina pectoris; I50.9 Heart failure, unspecified; F03.90 Unspecified dementia, unspecified severity, without behavioral disturbance, psychotic disturbance, mood disturbance, and anxiety; R32 Unspecified urinary incontinence; E78.5 Hyperlipidemia, unspecified; M54.9 Dorsalgia, unspecified; Z66 Do not resuscitate; R94.31 Abnormal electrocardiogram [ECG] [EKG]; K76.89 Other specified diseases of liver; G89.29 Other chronic pain; E11.22 Type 2 diabetes mellitus with diabetic chronic kidney disease; F32.9 Major depressive disorder, single episode, unspecified; F41.9 Anxiety disorder, unspecified; Z95.1 Presence of aortocoronary bypass graft; Z79.82 Long term (current) use of aspirin; Z88.6 Allergy status to analgesic agent
CPT/HCPCS: 36415; 36416; 71045; 74177; 74250; 80048; 80053; 82553; 82805; 83605; 83690; 84484; 85025; 88307; 92950; 93005; 94002; 96361; 96374; 96375; 99284; C9113; J0131; J0171; J0360; J0694; J2001; J2270; J2405; J2704; J3010; J3480; J3486; J3490; J7070; P9045; Q9963; Q9967; S0028